=== PATIENT | female | born 1965 | race Caucasian/White ===

== ENCOUNTER 2024-06-29 13:25 | Emergency (ER) | payer OTHER, SELFPAY ==
[2024-06-29] VITALS (27 sets, daily range): BP systolic 117–142; BP diastolic 83–96; PULSE 73–94; RESP 0–29; TEMP 36.3; O2SAT 92–100; BMI 46.7
--- NOTE | 2024-06-29 13:50 | CRLHL7_ITS ---
For Patients: As a result of the Century Cures Act, medical imaging exams and procedure reports are released immediately into your electronic medical record. You may view this report before your referring provider. If you have questions, please contact your health care provider. INDICATION: Shortness of breath COMPARISON: None. TECHNIQUE: Single frontal radiographic view(s) of the chest. FINDINGS: No substantial pleural effusion. No definite focal pulmonary consolidation. Normal heart size. No acute osseous findings. IMPRESSION: No acute thoracic findings. Dictated by Hood Harrison MD @ 06/29/2024 2:31:10 PM (Electronically Signed)
[2024-06-29 14:13] LABS: Basophils Percent Auto 0.3 % (0.0-3.0); Eosinophils Percent Auto 0.5 % (0.0-7.0); Hematocrit 51.4 % (33.0-51.0); Hemoglobin* 16.5 gm/dL (12.0-16.0); Immature Granulocytes Pct Auto 0.4 %; Lymphocytes Percent Auto 10.5 % (20-44); Mean Corpuscular HGB Conc 32 gm/dL (32-36); Mean Corpuscular Hemoglobin 28 pg (26-34); Mean Corpuscular Volume 87 fL (80-100); Monocytes Percent Auto 7.2 % (0.0-11.0); Neutrophils Percent Auto 81.1 % (42.0-72.0); Platelet Count* 388 K/uL (140-440); RDW Coefficient of Variation % 12.8 % (11.5-15.5); Red Blood Count 5.89 m/uL (4.00-5.20); White Blood Count* 14.72 K/uL (4.50-11.00)
--- NOTE | 2024-06-29 14:14 | ED.GENADULT ---
HPI - General Adult General Date Seen: 06/29/24 <Lashae Vaughn MD - Last Filed: 06/30/24 19:59> Chief complaint: Shortness of Breath/Dyspnea <Lashae Vaughn MD - Last Filed: 06/30/24 19:59> Stated complaint: shortness of breath <Lashae Vaughn MD - Last Filed: 06/30/24 19:59> Time Seen by Provider: 06/29/24 13:44 <Lashae Vaughn MD - Last Filed: 06/30/24 19:59> History of Present Illness HPI narrative: Patient is a 58-year-old woman who comes in because of shortness of breath which she says started earlier today. She told the nurse that she has chest tightness but when I asked about other chest symptoms she denied any chest pain or tightness or heaviness. She says that her hands have felt itchy today, she was working out in the garden yesterday. She notes lower extremity swelling but says that is chronic for the past year and is not any worse today. She denies any fever cough, denies any abdominal pain. She has had a little nausea today and says she had an episode of diarrhea which was nonbloody. She continues to feel short of breath here although she looks to be breathing more comfortably than when I 1st saw her. She does not smoke, denies any prior history of asthma or COPD. Denies significant alcohol use, uses marijuana occasionally, she says the last time was about a month ago. Other medical history notable for diabetes, hypertension <Lashae Vaughn MD - Last Filed: 06/30/24 19:59> Related Data Home medications: Home Medications ?Medication ?Instructions ?Recorded ?Confirmed lisinopril .ROUTE 06/29/24 losartan .ROUTE 06/29/24 omeprazole .ROUTE 06/29/24 rivaroxaban .ROUTE 06/29/24 Previous Rx's ?Medication ?Instructions ?Recorded rivaroxaban 15 mg tablet 15 mg PO BID #42 tabs 06/29/24 <Lashae Vaughn MD - Last Filed: 06/30/24 19:59> Allergies/adverse reactions: Allergies Allergy/AdvReac Type Severity Reaction Status Date / Time buspirone (From BuSpar) Allergy Intermediate Verified 06/29/24 15:35 <Lashae Vaughn MD - Last Filed: 06/30/24 19:59> Review of Systems Status of ROS: Reports: 10 or more systems reviewed and unremarkable except as noted in History and below <Lashae Vaughn MD - Last Filed: 06/30/24 19:59> Exam Narrative: Exam Narrative: Vital signs reviewed In general, alert, nontoxic manage woman, looks older than her stated age. Overweight. Head: Normocephalic, atraumatic. Eyes: Sclera clear. Pupils equal and reactive. ENT: Mucous membranes moist. Neck: Supple without adenopathy. Heart: Regular rate and rhythm without murmur. Lungs: Clear. No increased work of breathing, crackles or wheezes. Abdomen: Soft, nontender to palpation. Extremities: Well perfused, pulses intact. Some edema and venous stasis changes noted in bilateral lower extremities. No calf tenderness. No swelling in her hands. Neurologic: Alert, conversant. Speech fluent, face symmetric. Moves all extremities equally. Skin: Warm, dry well perfused. Affect: Anxious. <Lashae Vaughn MD - Last Filed: 06/30/24 19:59> Const: Vital Signs, click to edit/add: Vital Signs - 24 hr 06/29/24 13:43 06/29/24 14:18 06/29/24 14:19 Temperature 97.3 F L Pulse Rate 74 73 Pulse Rate [Pulse Oximeter] 94 Respiratory Rate 28 H 6 L 26 H Blood Pressure 142/89 H Blood Pressure [Ri ght Upper Arm] 139/88 Pulse Oximetry 98 97 97 Oxygen Delivery Me thod Room Air Room Air 06/29/24 14:30 06/29/24 14:32 06/29/24 14:45 Temperature Pulse Rate 77 79 74 Pulse Rate [Pulse Oximeter] Respiratory Rate 29 H 26 H 18 Blood Pressure 135/96 H Blood Pressure [Ri ght Upper Arm] Pulse Oximetry 94 94 100 Oxygen Delivery Me thod Room Air 06/29/24 15:00 06/29/24 15:15 06/29/24 15:30 Temperature Pulse Rate 73 73 76 Pulse Rate [Pulse Oximeter] Respiratory Rate 25 H 28 H 21 Blood Pressure Blood Pressure [Ri ght Upper Arm] Pulse Oximetry 96 95 96 Oxygen Delivery Me thod 06/29/24 15:32 06/29/24 15:58 06/29/24 15:59 Temperature Pulse Rate 74 75 Pulse Rate [Pulse Oximeter] Respiratory Rate 25 H 25 H Blood Pressure 117/83 137/85 Blood Pressure [Ri ght Upper Arm] Pulse Oximetry 93 94 Oxygen Delivery Me thod Room Air 06/29/24 16:00 06/29/24 16:02 06/29/24 16:15 Temperature Pulse Rate 76 76 77 Pulse Rate [Pulse Oximeter] Respiratory Rate 27 H 27 H 25 H Blood Pressure 128/91 H Blood Pressure [Ri ght Upper Arm] Pulse Oximetry 95 98 95 Oxygen Delivery Me thod Room Air 06/29/24 16:30 06/29/24 16:32 06/29/24 16:45 Temperature Pulse Rate 76 76 77 Pulse Rate [Pulse Oximeter] Respiratory Rate 25 H Blood Pressure 141/94 H Blood Pressure [Ri ght Upper Arm] Pulse Oximetry 96 95 92 Oxygen Delivery Me thod Room Air 06/29/24 17:00 06/29/24 17:02 06/29/24 17:03 Temperature Pulse Rate 77 76 Pulse Rate [Pulse Oximeter] Respiratory Rate 0 L Blood Pressure 136/84 Blood Pressure [Ri ght Upper Arm] Pulse Oximetry 98 94 Oxygen Delivery Me thod Room Air 06/29/24 17:15 06/29/24 17:30 06/29/24 17:32 Temperature Pulse Rate 79 76 77 Pulse Rate [Pulse Oximeter] Respiratory Rate 24 16 Blood Pressure 130/93 H Blood Pressure [Ri ght Upper Arm] Pulse Oximetry 96 96 96 Oxygen Delivery Me thod Room Air 06/29/24 17:45 06/29/24 18:00 06/29/24 18:02 Temperature Pulse Rate 81 75 77 Pulse Rate [Pulse Oximeter] Respiratory Rate 22 28 H Blood Pressure 129/95 H Blood Pressure [Ri ght Upper Arm] Pulse Oximetry 94 94 Oxygen Delivery Me thod Room Air <Lashae Vaughn MD - Last Filed: 06/30/24 19:59> Vital Signs, click to edit/add: Vital Signs - 24 hr 06/29/24 13:43 06/29/24 14:18 06/29/24 14:19 Temperature 97.3 F L Pulse Rate 74 73 Pulse Rate [Pulse Oximeter] 94 Respiratory Rate 28 H 6 L 26 H Blood Pressure 142/89 H Blood Pressure [Ri ght Upper Arm] 139/88 Pulse Oximetry 98 97 97 Oxygen Delivery Me thod Room Air Room Air 06/29/24 14:30 06/29/24 14:32 06/29/24 14:45 Temperature Pulse Rate 77 79 74 Pulse Rate [Pulse Oximeter] Respiratory Rate 29 H 26 H 18 Blood Pressure 135/96 H Blood Pressure [Ri ght Upper Arm] Pulse Oximetry 94 94 100 Oxygen Delivery Me thod Room Air 06/29/24 15:00 06/29/24 15:15 06/29/24 15:30 Temperature Pulse Rate 73 73 76 Pulse Rate [Pulse Oximeter] Respiratory Rate 25 H 28 H 21 Blood Pressure Blood Pressure [Ri ght Upper Arm] Pulse Oximetry 96 95 96 Oxygen Delivery Me thod 06/29/24 15:32 06/29/24 15:58 06/29/24 15:59 Temperature Pulse Rate 74 75 Pulse Rate [Pulse Oximeter] Respiratory Rate 25 H 25 H Blood Pressure 117/83 137/85 Blood Pressure [Ri ght Upper Arm] Pulse Oximetry 93 94 Oxygen Delivery Me thod Room Air 06/29/24 16:00 06/29/24 16:02 06/29/24 16:15 Temperature Pulse Rate 76 76 77 Pulse Rate [Pulse Oximeter] Respiratory Rate 27 H 27 H 25 H Blood Pressure 128/91 H Blood Pressure [Ri ght Upper Arm] Pulse Oximetry 95 98 95 Oxygen Delivery Me thod Room Air 06/29/24 16:30 06/29/24 16:32 06/29/24 16:45 Temperature Pulse Rate 76 76 77 Pulse Rate [Pulse Oximeter] Respiratory Rate 25 H Blood Pressure 141/94 H Blood Pressure [Ri ght Upper Arm] Pulse Oximetry 96 95 92 Oxygen Delivery Me thod Room Air 06/29/24 17:00 06/29/24 17:02 06/29/24 17:03 Temperature Pulse Rate 77 76 Pulse Rate [Pulse Oximeter] Respiratory Rate 0 L Blood Pressure 136/84 Blood Pressure [Ri ght Upper Arm] Pulse Oximetry 98 94 Oxygen Delivery Me thod Room Air 06/29/24 17:15 06/29/24 17:30 06/29/24 17:32 Temperature Pulse Rate 79 76 77 Pulse Rate [Pulse Oximeter] Respiratory Rate 24 16 Blood Pressure 130/93 H Blood Pressure [Ri ght Upper Arm] Pulse Oximetry 96 96 96 Oxygen Delivery Me thod Room Air 06/29/24 17:45 06/29/24 18:00 06/29/24 18:02 Temperature Pulse Rate 81 75 77 Pulse Rate [Pulse Oximeter] Respiratory Rate 22 28 H Blood Pressure 129/95 H Blood Pressure [Ri ght Upper Arm] Pulse Oximetry 94 94 Oxygen Delivery Me thod Room Air <Arian Reza MD - Last Filed: 06/29/24 18:47> Course Course ED Course: When I 1st walked into the room she was breathing very heavily but that seemed to settle down as we talked. She was never hypoxic. Lungs are clear. Will maintain her on the monitor, look for cardiac sources such as acute coronary syndrome or angina, arrhythmia, pericardial effusion, she is anticoagulated, need to clarify why as she did not mention anything her medical history that would require anticoagulation. She had an EKG that shows a normal sinus rhythm, ventricular rate of 72. No acute ST segment changes, unremarkable T-waves. Labs including troponin and D-dimer pending. Chest x-ray by my review does not show infiltrate, pneumothorax and cardiac silhouette looks overall normal. Radiology read pending at this time. Given that she has no wheezing or hypoxia, I am hesitant to use a neb at this time as there does not seem to be a clear indication. Labs notable for a mildly increased white blood cell count of 14.7, hemoglobin also increases 16.5 platelets normal. Slight left shift with 81% neutrophils. Metabolic panel normal, LFTs notable for mild elevations in transaminases with an AST of 62 and an ALT of 80, LFTs otherwise unremarkable. CRP minimally elevated at 2.3, BNP is 454, unlikely to suggest CHF particularly in the setting of a normal chest x-ray. Viral swab was negative and initial point of care troponin was 0.01. Radiology read of her chest x-ray was likewise negative. Notably, her D-dimer returned at greater than 20, so she is going to get a chest CT to rule out pulmonary embolism. Patient notes that she has a history of factor 5 Leiden and has had DVT, she does say that she is maintained on Xarelto and takes it regularly. However, she does say that there was a period of time where she was without her medications about a month ago due to some problem with the pharmacy. This may have created a window of time where she developed DVT. I reviewed her CT scan, I do think she has PE. Radiology called with report noting peripheral PE and some pulmonary hypertension but no right heart strain. She has a PESI score of 58 which puts her in the very low risk category. She is not requiring oxygen. I talked with our hospitalist who was able to look a little deeper into her records, it looks as if currently she is prescribed 10 mg of Xarelto daily, at least the last prescription that we can see this looks like which she was prescribed. This would be a very low dose, below even renal dosing, and may explain as well why she is having more difficulty with increased clotting. As such, I think it is reasonable to let her go home, there are no clear indications here for inpatient treatment at this moment, assuming that she is not failing DOAC treatment. My suspicion at this time is that she is just under dosed. I have sent a prescription for Xarelto 15 mg b.i.d. for the next 3 weeks, she should follow up with primary care. I am going to have ultrasound scan her legs just to see if she has significant additional clot or not. If she has heavy clot burden in the legs, she may warrant admission for heparin for 24 hours. Otherwise, outpatient management as above. She is not certain at this time which medication she is taking because of her insurance. It is possible we will need to switch this to Eliquis if her insurance refuses Xarelto. Interestingly, her INR is 0.88, suggesting she may not be taking even her low-dose Xarelto as religiously as she tells me. <Lashae Vaughn MD - Last Filed: 06/30/24 19:59> Reevaluation(s) Reevaluation #1: Patient signed out to Dr. Reza at shift change. Patient presented with chest pain was found to have small pulmonary emboli but stable for outpatient management. It turns out the patient has a history of venous thromboembolism and history of hypercoagulability and probably had been briefly off of her anticoagulants recently. Duplex ultrasound of her legs is ordered to make sure there is not additional clot burden. If there are significant DVTs, Dr. Vaughn would recommend changing plan from discharge and instead going with admission for anticoagulation and monitoring. DVT ultrasound came back negative. DVT ultrasound bilateral lower extremity IMPRESSION: Normal venous ultrasound exam. No evidence of deep vein thrombosis within either the left or right lower extremity. Patient was discharged as per Dr. Boss plan. <Arian Reza MD - Last Filed: 06/29/24 18:47> Vital Signs Vital signs: Initial Vital Signs Temperature 97.3 F L 06/29/24 13:43 Temperature Source Temporal Artery Scan 06/29/24 13:43 Pulse Rate 94 06/29/24 13:43 Respiratory Rate 28 H 06/29/24 13:43 Blood Pressure 139/88 06/29/24 13:43 Blood Pressure Mean 105 06/29/24 13:43 Pulse Oximetry 98 06/29/24 13:43 Oxygen Delivery Method Room Air 06/29/24 13:43 Vital Signs Temperature 97.3 F L 06/29/24 13:43 Pulse Rate 94 06/29/24 13:43 Respiratory Rate 28 H 06/29/24 13:43 Blood Pressure 139/88 06/29/24 13:43 Pulse Oximetry 98 06/29/24 13:43 Oxygen Delivery Method Room Air 06/29/24 13:43 Temperature 97.3 F L 06/29/24 13:43 Pulse Rate 77 06/29/24 18:02 Respiratory Rate 28 H 06/29/24 18:02 Blood Pressure 129/95 H 06/29/24 18:02 Pulse Oximetry 94 06/29/24 18:02 Oxygen Delivery Method Room Air 06/29/24 18:02 <Lashae Vaughn MD - Last Filed: 06/30/24 19:59> Initial Vital Signs Temperature 97.3 F L 06/29/24 13:43 Temperature Source Temporal Artery Scan 06/29/24 13:43 Pulse Rate 94 06/29/24 13:43 Respiratory Rate 28 H 06/29/24 13:43 Blood Pressure 139/88 06/29/24 13:43 Blood Pressure Mean 105 06/29/24 13:43 Pulse Oximetry 98 06/29/24 13:43 Oxygen Delivery Method Room Air 06/29/24 13:43 Vital Signs Temperature 97.3 F L 06/29/24 13:43 Pulse Rate 94 06/29/24 13:43 Respiratory Rate 28 H 06/29/24 13:43 Blood Pressure 139/88 06/29/24 13:43 Pulse Oximetry 98 06/29/24 13:43 Oxygen Delivery Method Room Air 06/29/24 13:43 Temperature 97.3 F L 06/29/24 13:43 Pulse Rate 77 06/29/24 18:02 Respiratory Rate 28 H 06/29/24 18:02 Blood Pressure 129/95 H 06/29/24 18:02 Pulse Oximetry 94 06/29/24 18:02 Oxygen Delivery Method Room Air 06/29/24 18:02 <Arian Reza MD - Last Filed: 06/29/24 18:47> Medical Decision Making Lab Data Labs: Lab Results 06/29/24 06/29/24 Range/Units 13:40 14:05 WBC 14.72 H (4.50-11.00) K/uL RBC 5.89 H (4.00-5.20) m/uL Hgb 16.5 H (12.0-16.0) gm/dL Hct 51.4 H (33.0-51.0) % MCV 87 (80-100) fL MCH 28 (26-34) pg MCHC 32 (32-36) gm/dL RDW Coeff of Mary 12.8 (11.5-15.5) % Plt Count 388 (140-440) K/uL Neut % (Auto) 81.1 H (42.0-72.0) % Lymph % (Auto) 10.5 L (20-44) % [place] % (Auto) 7.2 (0.0-11.0) % Eos % (Auto) 0.5 (0.0-7.0) % Baso % (Auto) 0.3 (0.0-3.0) % Neut # (Auto) 11.90 H (1.7-7.0) K/uL Lymph # (Auto) 1.50 (0.90-2.90) K/uL [place] # (Auto) 1.10 H (0.00-0.90) K/UL Eos # (Auto) 0.10 (0.00-0.50) K/uL Baso # (Auto) 0.00 (0.00-0.30) K/uL Abs Immat Gran (auto) 0.10 (0.00-0.30) K/uL Imm/Tot Granulo (auto) 0.4 % INR 0.88 L (0.91-1.10) D-Dimer Quant (PE/DVT) > 20.00 H (0.00-0.50) ug/ml Sodium 140 (135-149) mmol/L Potassium 4.3 (3.6-5.1) mmol/L Chloride 107 (96-114) mmol/L Carbon Dioxide 25 (20-32) mmol/L Anion Gap 8 (7-15) mEq/L BUN 16 (7-30) mg/dL Creatinine 1.0 (0.5-1.5) mg/dL Estimated Creat Clear 52.95 Estimated GFR 65 ml/min Glucose 126 H (60-115) mg/dL Calcium 9.1 (8.4-10.6) mg/dL Magnesium 2.1 (1.5-2.6) mg/dL Total Bilirubin 0.6 (0.1-1.5) mg/dL Direct Bilirubin 0.3 (0.0-0.5) mg/dL AST 62 H (12-35) U/L ALT 80 H (4-35) U/L Alkaline Phosphatase 143 (40-150) U/L C-Reactive Protein 2.3 H (0.5-1.0) mg/dL NT-Pro-B Natriuret Pep 454 pg/mL Total Protein 7.4 (6.0-8.3) g/dL Albumin 4.4 (3.3-5.0) g/dL SARS-CoV-2 (PCR) Negative SARS-CoV-2 (Negative) Influenza Type A (PCR) Negative PCR FLU A (Negative) Influenza Type B (PCR) Negative PCR FLU B (Negative) RSV (PCR) Negative PCR RSV (Negative) POC Troponin I 0.01 (0.01-0.04) ng/ml <Lashae Vaughn MD - Last Filed: 06/30/24 19:59> Lab Results 06/29/24 06/29/24 Range/Units 13:40 14:05 WBC 14.72 H (4.50-11.00) K/uL RBC 5.89 H (4.00-5.20) m/uL Hgb 16.5 H (12.0-16.0) gm/dL Hct 51.4 H (33.0-51.0) % MCV 87 (80-100) fL MCH 28 (26-34) pg MCHC 32 (32-36) gm/dL RDW Coeff of Mary 12.8 (11.5-15.5) % Plt Count 388 (140-440) K/uL Neut % (Auto) 81.1 H (42.0-72.0) % Lymph % (Auto) 10.5 L (20-44) % [place] % (Auto) 7.2 (0.0-11.0) % Eos % (Auto) 0.5 (0.0-7.0) % Baso % (Auto) 0.3 (0.0-3.0) % Neut # (Auto) 11.90 H (1.7-7.0) K/uL Lymph # (Auto) 1.50 (0.90-2.90) K/uL [place] # (Auto) 1.10 H (0.00-0.90) K/UL Eos # (Auto) 0.10 (0.00-0.50) K/uL Baso # (Auto) 0.00 (0.00-0.30) K/uL Abs Immat Gran (auto) 0.10 (0.00-0.30) K/uL Imm/Tot Granulo (auto) 0.4 % INR 0.88 L (0.91-1.10) D-Dimer Quant (PE/DVT) > 20.00 H (0.00-0.50) ug/ml Sodium 140 (135-149) mmol/L Potassium 4.3 (3.6-5.1) mmol/L Chloride 107 (96-114) mmol/L Carbon Dioxide 25 (20-32) mmol/L Anion Gap 8 (7-15) mEq/L BUN 16 (7-30) mg/dL Creatinine 1.0 (0.5-1.5) mg/dL Estimated Creat Clear 52.95 Estimated GFR 65 ml/min Glucose 126 H (60-115) mg/dL Calcium 9.1 (8.4-10.6) mg/dL Magnesium 2.1 (1.5-2.6) mg/dL Total Bilirubin 0.6 (0.1-1.5) mg/dL Direct Bilirubin 0.3 (0.0-0.5) mg/dL AST 62 H (12-35) U/L ALT 80 H (4-35) U/L Alkaline Phosphatase 143 (40-150) U/L C-Reactive Protein 2.3 H (0.5-1.0) mg/dL NT-Pro-B Natriuret Pep 454 pg/mL Total Protein 7.4 (6.0-8.3) g/dL Albumin 4.4 (3.3-5.0) g/dL SARS-CoV-2 (PCR) Negative SARS-CoV-2 (Negative) Influenza Type A (PCR) Negative PCR FLU A (Negative) Influenza Type B (PCR) Negative PCR FLU B (Negative) RSV (PCR) Negative PCR RSV (Negative) POC Troponin I 0.01 (0.01-0.04) ng/ml <Arian Reza MD - Last Filed: 06/29/24 18:47> Imaging Data CT scan - chest: Attestation: I have reviewed the pertinent imaging results. <Lashae Vaughn MD - Last Filed: 06/30/24 19:59> Radiologist's impression: [place] [address] Diagnostic Imaging Report Patient: Rachele Sue MR#: [id number] : 1965 Acct:[id number] Loc: ED Service Date: 06/29/[address]: Ordering Physician: Lashae Vaughn M.D. Date of Service: 06/29/24 Procedure(s): CT angio chest PE protocol Accession Number(s): [id number] cc: Lashae Vaughn M.D.; Provider,Not a Local~ For Patients: As a result of the Cures Act, medical imaging exams and procedure reports are released immediately into your electronic medical record. You may view this report before your referring provider. If you have questions, please contact your health care provider. INDICATION: Shortness of breath and elevated D-dimer COMPARISON: Same day chest radiograph TECHNIQUE: CT pulmonary angiogram of the chest with intravenous contrast (95 milliliters Isovue 370). Reconstructed images/MIPS were created. FINDINGS: Mildly motion degraded exam. Airways: The trachea and central airways are clear. Lungs: No mass or consolidation. Please note that evaluation for pulmonary nodules is limited due to motion artifact. Slight mosaic attenuation throughout the lungs. Pleura: No effusion. Lymph nodes: No bulky thoracic lymphadenopathy. Heart: Normal size. No CT evidence of right heart strain. Aorta: Normal caliber. Pulmonary artery: There are lobar and more distal pulmonary emboli with an overall moderate clot volume. Enlarged caliber of the main pulmonary artery suggestive of pulmonary hypertension in the context of embolism. Chest wall: Normal. Bones: There are osseous degenerative changes. Probably old fracture of the left anterior 3rd rib. Slight anterior vertebral body wedging most conspicuous in the mid and inferior thoracic spine. Additional findings: Small hiatal hernia. Partially imaged punctate nonobstructing right renal calculus. Partially imaged colonic diverticulosis. IMPRESSION: 1. There are lobar and more distal pulmonary emboli with an overall moderate clot volume. 2. Enlarged caliber of the main pulmonary artery suggestive of pulmonary hypertension in the context of embolism. 3. No CT evidence of right heart strain. 4. Additional chronic and incidental findings as discussed above. 5. Findings discussed via telephone with Dr. Vaughn at 2:16 p.m. [place] standard time June 29, 2024. Please note that all CT scans at this facility use dose modulation, iterative reconstruction, and/or weight-based dosing when appropriate to reduce radiation dose to as low as reasonably achievable. Dictated by Hood Harrison MD @ 06/29/2024 4:22:50 PM <Lashae Vaughn MD - Last Filed: 06/30/24 19:59> Discharge Plan Discharge Clinical Impression: Pulmonary embolism <Lashae Vaughn MD - Last Filed: 06/30/24 19:59> Patient Disposition: Home, Self-Care <Lashae Vaughn MD - Last Filed: 06/30/24 19:59> Condition: Stable <Lashae Vaughn MD - Last Filed: 06/30/24 19:59> Instructions: Pulmonary Embolism (ED) <Lashae Vaughn MD - Last Filed: 06/30/24 19:59> Additional Instructions: We are going to change the dosing of your anticoagulation. I am not sure at this point if you are on Xarelto or Eliquis, and I do not know for sure which medication your insurance prefers. I am going to prescribe Xarelto, and if needed this can be switched to Eliquis. You should take the higher dose of Xarelto for 3 weeks. Please follow-up with your primary care doctor in the next 1-2 weeks to discuss further anticoagulation. If you are feeling worse, have more significant shortness of breath, fainting, severe pain, fevers etcetera, return to the ER at any time. <Lashae Vaughn MD - Last Filed: 06/30/24 19:59> Prescriptions: New rivaroxaban 15 mg tablet 15 mg PO BID Qty: 42 0RF Rx Instructions: must administer with evening meal No Action lisinopril .ROUTE losartan .ROUTE omeprazole .ROUTE rivaroxaban [Xarelto] .ROUTE <Lashae Vaughn MD - Last Filed: 06/30/24 19:59> Follow Up/Referrals: Provider,Not a Local [Primary Care Provider] - <Lashae Vaughn MD - Last Filed: 06/30/24 19:59> Stand Alone Forms: MyHealth Info Instructions <Lashae Vaughn MD - Last Filed: 06/30/24 19:59>
[2024-06-29 14:19] LABS: Slide Review Reflex No; Troponin, Point-of-Care* 0.01 ng/ml (0.01-0.04)
[2024-06-29 14:27] LABS: Albumin* 4.4 g/dL (3.3-5.0); Chloride* 107 mmol/L (96-114); Sodium* 140 mmol/L (135-149)
[2024-06-29 14:28] LABS: Potassium* 4.3 mmol/L (3.6-5.1)
[2024-06-29 14:30] LABS: Alanine Aminotransferase* 80 U/L (4-35); Alkaline Phosphatase* 143 U/L (40-150); Anion Gap 8 mEq/L (7-15); Aspartate Amino Transferase* 62 U/L (12-35); Bilirubin Direct* 0.3 mg/dL (0.0-0.5); Bilirubin Total* 0.6 mg/dL (0.1-1.5); Blood Urea Nitrogen* 16 mg/dL (7-30); Calcium* 9.1 mg/dL (8.4-10.6); Carbon Dioxide* 25 mmol/L (20-32); Est. Creatinine Clearance* 52.95; Estimated Glomerular Filt Rate 65 ml/min; Glucose* 126 mg/dL (60-115); Total Protein* 7.4 g/dL (6.0-8.3)
[2024-06-29 14:31] LABS: Magnesium* 2.1 mg/dL (1.5-2.6)
[2024-06-29 14:33] LABS: C Reactive Protein* 2.3 mg/dL (0.5-1.0)
[2024-06-29 14:35] LABS: PCR FLU A Negative PCR FLU A (Negative); PCR FLU B Negative PCR FLU B (Negative); PCR RSV Negative PCR RSV (Negative); SARS PCR* Negative SARS-CoV-2 (Negative)
[2024-06-29 14:41] LABS: NT Pro B Type NatriureticPept* 454 pg/mL
[2024-06-29 15:18] LABS: D Dimer Quantitative* > 20.00 ug/ml (0.00-0.50)
--- NOTE | 2024-06-29 15:25 | CRLHL7_ITS ---
For Patients: As a result of the Century Cures Act, medical imaging exams and procedure reports are released immediately into your electronic medical record. You may view this report before your referring provider. If you have questions, please contact your health care provider. INDICATION: Shortness of breath and elevated D-dimer COMPARISON: Same day chest radiograph TECHNIQUE: CT pulmonary angiogram of the chest with intravenous contrast (95 milliliters Isovue 370). Reconstructed images/MIPS were created. FINDINGS: Mildly motion degraded exam. Airways: The trachea and central airways are clear. Lungs: No mass or consolidation. Please note that evaluation for pulmonary nodules is limited due to motion artifact. Slight mosaic attenuation throughout the lungs. Pleura: No effusion. Lymph nodes: No bulky thoracic lymphadenopathy. Heart: Normal size. No CT evidence of right heart strain. Aorta: Normal caliber. Pulmonary artery: There are lobar and more distal pulmonary emboli with an overall moderate clot volume. Enlarged caliber of the main pulmonary artery suggestive of pulmonary hypertension in the context of embolism. Chest wall: Normal. Bones: There are osseous degenerative changes. Probably old fracture of the left anterior 3rd rib. Slight anterior vertebral body wedging most conspicuous in the mid and inferior thoracic spine. Additional findings: Small hiatal hernia. Partially imaged punctate nonobstructing right renal calculus. Partially imaged colonic diverticulosis. IMPRESSION: 1. There are lobar and more distal pulmonary emboli with an overall moderate clot volume. 2. Enlarged caliber of the main pulmonary artery suggestive of pulmonary hypertension in the context of embolism. 3. No CT evidence of right heart strain. 4. Additional chronic and incidental findings as discussed above. 5. Findings discussed via telephone with Dr. Vaughn at 2:16 p.m. [place] standard time June 29, 2024. Please note that all CT scans at this facility use dose modulation, iterative reconstruction, and/or weight-based dosing when appropriate to reduce radiation dose to as low as reasonably achievable. Dictated by Hood Harrison MD @ 06/29/2024 4:22:50 PM (Electronically Signed)
--- NOTE | 2024-06-29 16:21 | CRLHL7_ITS ---
For Patients: As a result of the Century Cures Act, medical imaging exams and procedure reports are released immediately into your electronic medical record. You may view this report before your referring provider. If you have questions, please contact your health care provider. INDICATION: Known history of pulmonary embolism. TECHNIQUE: A compression venous ultrasound exam was performed of both lower extremities using murray scale imaging, color Doppler and spectral Doppler analysis. FINDINGS: Sonographic imaging of the lower extremities demonstrates normal compressibility and color Doppler venous blood flow within the common femoral, deep femoral, and proximal greater saphenous veins. Within the thighs the femoral veins are patent and compressible. At a lower level the popliteal and posterior tibial veins also show normal compressibility and color Doppler venous blood flow. IMPRESSION: Normal venous ultrasound exam. No evidence of deep vein thrombosis within either the left or right lower extremity. Dictated by Sylvain Mayorga MD @ 06/29/2024 6:45:26 PM (Electronically Signed)
[2024-06-29 16:52] LABS: INR 0.88 (0.91-1.10); Prothrombin Time 12.7 Seconds
--- OUTSIDE RECORDS SUMMARY | 2024-06-29 17:48 | XMS_ITS | Encounter Summary ---
Author Organization [facility] Address [address] [place] [address] Care Team Providers Care Processor Grain Name Role Phone [facility] Primary Ca re Provider No Ref-Primary, Physician Primary Care Provider Keyla Ayala MD Unavailable [phone] Patrizia Palm MD Unavailable [phone] Patrizia Palm MD Unavailable [phone] Paula Alex MD Unavailable [phone] [facility] Unavailable Encounter Details Date Type Department Care Team (Late st Contact Info) Description 12/05/2018 Records - [facility] HE CONVERSION Scan, Non-Provider Social History Tobacco Use Types Packs/Day Years Used Date Smoking Tobacco: Never Smokeless Tobacco: Never Alcohol Use Standard Drinks/Week Comments Yes 0 (1 standard drink = 0.6 oz pur e alcohol) weekends Comments No Sex and Gender Information Value Date Recorded Sex Assigned at Not on file Legal Sex Female 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 Gender Identity Not on file Sexual Orientation Not on file documented as of this encounter Plan of Treatment Not on file documented as of this encounter Visit Diagnoses Not on filedocumented in this encounter Care Teams Processor Grain Relationship Specialty Start Date End Date [facility] [address] [place] [address] PCP - General 09/21/17 12/26/18 No Ref-Primary, Physician PCP - General 12/27/18 Keyla Ayala MD PLASTIC SURGERY [address] [place] [address] Surgeon Plastic Surgery 12/27/18 Patrizia Palm MD [address] [place] [id number] Plastic Surgery 12/27/18 Patrizia Palm MD [address] [place] [address] [id number] Assigned Surgical Provider 12/05/19 Paula Alex MD [address] [place] [address] [id number] Assigned PCP 07/28/20 03/07/23 [facility] [address] [place], [place] [id number] Assigned PCP 03/08/23 02/03/24 documented as of this encounter
--- OUTSIDE RECORDS SUMMARY | 2024-06-29 17:48 | XMS_ITS | Patient Health Record ---
Author Organization [facility] Address [address] [place] [address] Care Team Providers Care Sql Architect Name Role Phone Roxy Alcantara Primary Care Provider [phone] Allergies Allergen (clinical drug ingredient) Drug/Non Drug Allergy documented on EMR Reaction Allergy Type Onset Date Status metronidazole Flagyl Unknown Drug Allergy Act saida sertraline Zoloft Unknown Drug Allergy Active Reason For Referral No Information Medications Medication SIG (Take, Route, Frequency, Duration) Notes Start Date End Date Status Vitamin E Active metFORMIN HCl Active Eliquis Active Topiramate Active Wellbutrin Active Social History Tobacco Use: Social History Observation Description Date Details (start date - stop date) Never Smoker NA - NA Tobacco Use/Smoking Question Answer Notes Are you a nonsmoker Plan Of Treatment No Information Insurance Providers Payer Name Payer Address Payer Phone Subscriber Number Group Number Insured Name Patient Relationship to Insured Coverage Start Date Coverage End Date Medicare (Ins. Bill) [address] [place], [place] [id number] Linette Rachele Self - patient is the insured [facility] Medicaid (Ins. Bill) [address] [address] [place], [place] [id number] Linette Rachele Self - patient is the insured Medical (General) History Medical History History ICD Code Depression\Anxiety Factor V Diabetes HTN High cholestrol Migraines Surgical History Surgery Date(Month/Year) TVT 2008 Foot surgery 1988 Knee surgery 2010 Tubal ligation
--- OUTSIDE RECORDS SUMMARY | 2024-06-29 17:48 | XMS_ITS | Patient Health Record ---
Author Organization [facility] Address [address] [place] [address] Support Name Relationship Address Phone InocenteSherry mancinicarina Harvey Guarantor Unknown [phone] Allergies Allergen (clinical drug ingredient) Drug/Non Drug Allergy documented on EMR Reaction Allergy Type Onset Date Status aripiprazole Abilify (uncoded) Unknown Allergy Active BuSpar (uncoded) Unknown Allergy Act saida metronidazole Flagyl (uncoded) Unknown Allergy Active escitalopram Lexapro (uncoded) Unknown Allergy Active Reason For Referral No Information Medications Medication SIG (Take, Route, Fr equency, Duration) Notes Start Date End Date Status Warfarin Sodium Acti ve Probiotic Active Pepcid Active Wellbutrin XL Active Topiramate Active Gemfibrozil Active Fish Oil Active Imitrex Active Social History Tobacco Use: Social History Observation Description Date Details (start date - stop date) Never Smoker NA - NA Tobacco Use/Smoking Question Answer Notes Are you a nonsmoker Alcohol Screen (Audit-C) Question Answer Notes Did you have a drink contain ing alcohol in the past year? Yes How often did you have a dri nk containing alcohol in the past year? 2 to 4 times a month (2 points) How many drinks did you have on a typical day when you were drinking in the past year? 5 or 6 drinks (2 points) Points 4 Problems Problem Type SNOMED Code ICD Code Onset Dates Problem Status W/U Status Risk Notes Problem Atrophy of vagina (297783618) Vaginal atrophy (N95.2) Active confirmed Plan Of Treatment No Information Insurance Providers Payer Name Payer Address Payer Phone Subscriber Number Group Number Insured Name Patient Relationship to Insured Coverage Start Date Coverage End Date Preferred One PPO [address] [address] [place] [id number] Rachele Sue Self - patient is the insured Medical (General) History Medical History History ICD Code High cholesterol. Blood Clots Hep B Bladder Infections Chicken Pox Migraines Depression/Anxiety Surgical History Surgery Date(Month/Year) Essure 2004 Appendix removal 1969 ACL, MCL, Medial Menuscus repair 2010
--- OUTSIDE RECORDS SUMMARY | 2024-06-29 17:48 | XMS_ITS | Clinical Summary ---
Author Organization [facility] Address [address] [place] [address] Care Team Providers Care Vice President Of Brand Management Name Role Phone Mic Rothman DO Primary Care Provider Allergies Active Allergy Reactions Criticality Noted Date Comments Aripiprazole Other - Describe In Comment Field 07/10/2014 Memory Change Buspirone Other - Describe In Comment Field 07/09/2013 Patient get aggitated Escitalopram Itching 07/09/2013 Metronidazole Nausea And Vomiting 07/09/2013 Medications acetaminophen (TYLENOL) 325 mg tablet 10/17/19 18 Active Lactobacillus acidophilus 1.5 mg (250 million cell) cap Take 1 Cap by mouth. Active omega-3 acid ethyl esters (LOVAZA;OMACOR) 1 gram capsule Take 1,000 mg by mouth. Active saliva substitute (Biotene Dry Mouth Oral Rinse) mouthwash Apply 10 mL to the lining of the mouth. 06/19/19 21 Active Compression Socks, Large miscIndications:Ve nous insufficiency (chronic) (peripheral) As directed. Dispense 2 pairs of compression socks. 4 Each 10/13/19 23 Active Xarelto 10 mg tabletIndications: Heterozygous factor V Leiden mutation (HC),History of DVT (deep vein thrombosis) Take 1 Tablet (10 mg) by mouth once daily with evening meal. 30 Tablet 5 01/18/20 24 Active topiramate (TOPAMAX) 50 mg tabletIndications: Migraine syndrome Take 1 Tablet (50 mg) by mouth once daily. 90 Tablet 3 01/18/20 24 Active SUMAtriptan (IMITREX) 50 mg tabletIndications: Migraine syndrome Take 1 Tablet (50 mg) by mouth 2 times daily if needed for Migraine. 12 Tablet 5 01/18/20 24 Active omeprazole (PRILOSEC) 20 mg Delayed-Release capsuleIndications :Chronic GERD Take 1 Capsule (20 mg) by mouth once daily before a meal. 90 Capsule 3 01/18/20 24 Active metFORMIN (GLUCOPHAGE) 500 mg tabletIndications: Type 2 diabetes mellitus without complication, without long-term current use of insulin (HC) Take 1 Tablet (500 mg) by mouth two times daily with meals. 180 Tablet 3 01/18/20 24 Active losartan (COZAAR) 25 mg tabletIndications: Primary hypertension Take 1 Tablet (25 mg) by mouth once daily. 90 Tablet 3 01/18/20 24 Active furosemide (LASIX) 20 mg tabletIndications: Peripheral edema Take 1 Tablet (20 mg) by mouth once daily if needed (swelling). 90 Tablet 3 01/18/20 24 Active famotidine (PEPCID) 20 mg tabletIndications: Chronic GERD Take 1 Tablet (20 mg) by mouth two times daily. 180 Tablet 3 01/18/20 24 Active cholecalciferol (Vitamin D-3) 2,000 unit capsuleIndications :Vitamin D deficiency Take 1 Capsule (2,000 units) by mouth once daily. 90 Capsule 3 01/18/20 24 Active atorvastatin (LIPITOR) 20 mg tabletIndications: Mixed hyperlipidemia Take 1 Tablet (20 mg) by mouth at bedtime. 90 Tablet 3 01/18/20 24 Active Mounjaro 12.5 mg/0.5 mL penIndications:Typ e 2 diabetes mellitus without complication, without long-term current use of insulin (HC) Inject 12.5 mg subcutaneous once weekly. 12 Pen 1 01/18/20 24 Active tretinoin (RETIN-A) 0.1 % creamIndications:C ystic acne Apply 1 g topically to affected area(s) at bedtime. 45 g 3 01/18/20 24 Active Active Problems Problem Noted Date Diagnosed Date Type 2 diabetes mellitus wit hout complication, without long-term current use of insulin 10/12/2022 Primary hypertension 10/12/2022 Bilateral swelling of feet 07/06/2022 Dermatophytosis of nail 09/20/2020 07/07/19 Generalized anxiety disorder 09/20/2020 care home current use of anticoagulant therapy 0 09/20/2020 07/06/2022 Migraine aura without headache 09/20/2020 0 07/06/2022 Pityriasis versicolor 09/20/2020 07/06/2022 Primary insomnia 09/20/2020 07/06/2022 Reflux esophagitis 09/20/2020 07/06/2022 Stress at home 09/20/2020 07/06/2022 Morbid obesity 06/18/2020 07/06/2022 Major depressive disorder, recurrent episode 11/2019 Overview (09/22/2019): Created by Conversion Replacement Utility updated for latest IMO load Hyperlipidemia 09/22/2019 Overview (09/22/2019): Created by Conversion Vitamin B12 deficiency (non anemic) 01/30/2019 Other acne 10/16/2017 Esophageal reflux 10/16/2017 Chronic pain 10/16/2017 Schizoaffective disorder, bipolar type 8 Delusions 09/21/2017 History of DVT (deep vein thrombosis) 07/06/2017 Factor 5 Leiden mutation, heterozygous 8 Varicose veins 07/29/2014 Resolved Problems Problem Noted Date Diagnosed Date Resolved Date Cocaine substance abuse 09/20/2020 07/06/2022 08/3 02/2022 Methamphetamine use disorder, severe 09/28/2017 10/12/2022 Immunizations Immunization Administration Dates Next Due COVID-19 vaccine (Moderna 100mcg/0.5mL) PF, MDV 10/22/2020,09/20/2020 Influenza RIV4 (Age 18+ Year s) PRESERV FREE 12/30/2020,01/02/2019,11/16/2017 Influenza Virus, Unspecified 11/13/2016, 11/22/2011,10/27/2010,2009,11/05/2008,12/09/2007 Influenza, IIV3 (Age 6-35 mos) 11/16/2015,2008,12/09/2007 Influenza, IIV3 (Age >=3 years) 11/03/19 15,10/11/2012,11/22/2011,2010,11/11/2009 Influenza, IIV4 11/13/2016 Influenza, IIV4 (=>6mos) MDV 10/13/2014,11/18/19 14 Td (Age >=7 Years) 06/01/1997 Td, Preservative Free (age > = 7 Years) 11/16/2017,06/01/1997 Tdap 02/23/2017,09/26/2006 Family History Medical History Relation Name Comments Cancer-breast Maternal Aunt Purnima Joseph's moth er Cancer-breast Other Opal Felton's daughte r Leukemia Son Pradeep Cancer-colon No Family History Cancer-ovarian No Family History Cancer-prostate No Family History Relation Name Status Comments Maternal Aunt Purnima Alive Other Opal Alive maternal 1st co usin Son Pradeep Alive Social History Tobacco Use Types Packs/Day Years Used Date Smoking Tobacco: Former Smokeless Tobacco: Never Alcohol Use Standard Drinks/Week Comments Yes 0 (1 standard drink = 0.6 oz pur e alcohol) PHQ-2 Answer Date Recorded PHQ-2 TOTAL SCORE 1 07/06/2022 Social Connections Answer Date Recorded Frequency of Communication with Friends and Fami ly Not on file 10/13/2023 Financial Resource Strain Answer Date R ecorded Difficulty of Paying Living Expenses 3 10/12/2022 Difficulty of Paying Living Expenses Not on file 10/12/2022 Food Insecurity Answer Date Recorded Worried About Running Out of Food in the Last Ye ar 1 10/12/2022 Transportation Needs Answer Date Record ed Lack of Transportation (Medical) 1 10/12/2022 Housing Stability Answer Date Recorded Unable to Pay for Housing in the Last Year 1 10/12/2022 Comments No Sex and Gender Information Value Date Recorded Sex Assigned at Not on file Legal Sex Female 7:35 PM CDT Gender Identity Not on file Sexual Orientation Not on file Obstetrics History Last Filed Vital Signs Vital Sign Reading Time Taken Comments Blood Pressure 150/96 10/17/2023 11:26 AM CDT Pulse 87 10/17/2023 11:24 AM CDT Temperature 36.4 C (97.5 F) 09/01/2021 9:10 PM CDT Respiratory Rate 18 09/01/2021 9:10 PM CDT Oxygen Saturation 98% 10/17/2023 11:24 AM CDT Inhaled Oxygen Concentration - - Weight 118.2 kg (260 lb 8 oz) 10/17/2023 11:24 A M CDT Height 160.7 cm (5' 3.27) 10/17/2023 11:24 AM C DT Body Mass Index 45.76 10/17/2023 11:24 AM CDT Plan of Treatment Health Maintenance Due Date Last Done Comments Depression screening for age 12+ 1977 Hepatitis B series for Diabetes (1 of 3 - 19+ 3-dose series) 1984 Pneumococcal series for age 50+ (1 of 2 - PCV) 1984 Pap test for age 21-65 1986 Zoster (shingles) series for age 50+ (1 of 2) 11/01/2015 COVID-19 vaccine series ( season) 2023 10/22/2020, 09/20/2020 Mammogram for age 45-75 10/15/2023 10/14/2022 Influenza Vaccine (Season Ended) 2024 12/30/2020, 01/02/2019, 11/16/2017, Additional history exists BMI (ht and wt on same day) for age 18+ 10/16/2024 10/17/2023, 07/06/2022, 09/22/2019, Additional history exists Colonoscopy through age 75 02/12/202502/12 (Completed [facility] of [facility]) Tetanus booster 11/17/2027 11/16/2017, 02/12, 09/26/2006, Additional history exists Lipids for age 45-75 10/16/2028 10/17/2023, 10/13/19 23 Tdap Completed 02/23/2017, 09/26/2006 HIV for age 15-65 Completed 08/18/2019 Hepatitis C screening for age 18-79 Addressed 09/28/2021 (Verified in Care Everywhere or Patient Record) Overridden with the intention of not completing the topic Procedures Procedure Name Priority Date/Time Associated Diagnosis Comments LIPID PANEL W REFLEX MEASURED LDL Routine 10/17/2023 11:12 AM CDT Hyperlipidemia, unspecified hyperlipidemia type XR MAMMO SHIRA BILAT SCREEN Routine 10/14/2022 3:23 PM CDT Visit for screening mammogram ANTI HIV 1/2 Routine 08/18/2019 9:25 PM CDT Possible exposure to STD from Last 3 Months or Most Recently Relevant to Health Maintenance Results * (ABNORMAL) LIPID PANEL W REFLEX MEASURED LDL (10/17/2023 11:12 AM CDT) CHOLESTEROL,TOTAL 161 100 - 199 mg/dL 10/17/2023 6:32 PM CDT [facility] Comment: Cholesterol, Total Reference Ranges Desirable <200 mg/dL Borderline 200-239 mg/dL High >=240 mg/dL TRIGLYCERIDES 161(H) <150 mg/dL 10/17/2023 6:32 PM CDT [facility] HDL CHOLESTEROL 58 >40 mg/dL 6:32 PM CDT [facility] NON-HDL CHOLESTEROL 103 <145 mg/dl 10/17/2023 6:32 PM CDT [facility] CHOL/HDL RATIO 2.78 <4.50 10/17/2023 6:32 PM CDT [facility] LDL CHOLESTEROL 71 <=130 mg/dL 10/17/2023 6:32 PM CDT [facility] VLDL CHOLESTEROL 32(H) <=30 mg/dL 10/17/2023 6:32 PM CDT [facility] PROVIDER ORDERED STATUS RANDOM 10/17/2023 6:32 PM CDT [facility] Blood BLOOD SPECIMEN / Unknown Venipuncture / Unknown 10/17/2023 11:12 AM CDT 10/17/2023 11:14 AM CDT us Mic Rothman DO CHEMISTRY Final Result [facility] [address] [place] [address], [place] * XR MAMMO SHIRA BILAT SCREEN (10/14/2022 3:23 PM CDT) Anatomical Region Laterality Modality BREASTS, Breast Left, Breast Right Bilateral Mammography Impressions 10/18/2022 11:47 AM CDT There is no radiographic evidence for malignancy. Recommend annual mammograms. MAMMOGRAM ASSESSMENT: ACR 1 Negative PATIENTS: You will also receive a letter with your examination results in an easy to read format. If you have questions about your results, please contact your referring provider. Narrative 10/18/2022 11:47 AM CDT For Patients: As a result of the Century Cures Act, medical imaging exams and procedure reports are released immediately into your electronic medical record. You may view this report before your referring provider. If you have questions, please contact your health care provider. XR MAMMO SHIRA BILAT SCREEN [[id number]] CLINICAL HISTORY: This is an asymptomatic 56 y.o. patient. INDICATION FOR EXAM: Mammogram Screening. TECHNIQUE: CC & MLO views were obtained. This study was evaluated with the assistance of Computer-Aided Detection. Breast Tomosynthesis was used in interpretation. COMPARISON FILM: Yes 08/06/19 Outside Facility 09/05/18 Outside Facility FINDINGS: The breasts are almost entirely fatty. There are no dominant masses, suspicious micro calcifications or areas of architectural distortion. us Angelica De Luna MD MAMMO Final Result * ANTI HIV 1/2 (08/18/2019 9:25 PM CDT) HIV-1/HIV-2 ANTIBODY Non-Reacti ve Non-Reacti ve 08/19/2019 3:21 PM CDT [facility] Comment:HIV-1 p24 and HIV-1/ HIV-2 Ab not detected. Blood BLOOD SPECIMEN / Unknown Non-Lab Venipuncture / Unknown 08/18/2019 9:25 PM CDT 08/18/2019 9:34 PM CDT us Lashae Otto MD SEND OUTS Final R esult [facility] [address] [place] [address], [place] from Last 3 Months or Most Recently Relevant to Health Maintenance Insurance MEDICARE PART B HB ONLY [employer] G[employer] CHOICE MR Care Teams Vice President Of Brand Management Relationship Specialty Start Date End Date Mic Rothman DO [address] [place] [address] PCP - General Family Practice 10/19/22
--- OUTSIDE RECORDS SUMMARY | 2024-06-29 17:48 | XMS_ITS | Encounter Summary ---
Author Organization [facility] Address [address] [place] [address] Care Team Providers Care Technical Clerk Name Role Phone No Ref-Primary, Physician Primary Care Provider Keyla Ayala MD Unavailable [phone] Patrizia Palm MD Unavailable [phone] Patrizia Palm MD Unavailable [phone] Paula Alex MD Unavailable [phone] Clinic - [facility] Unavailable Encounter Details Date Type Department Care Team (Late st Contact Info) Description 06/18/2020 Records - [facility] HE CONVERSION Scan, Non-Provider Social History Tobacco Use Types Packs/Day Years Used Date Smoking Tobacco: Never Cigarettes Smokeless Tobacco: Never Alcohol Use Standard Drinks/Week Comments Yes 0 (1 standard drink = 0.6 oz pur e alcohol) weekends PHQ-2 Answer Date Recorded PHQ-2 Score 0 08/01/2019 Comments No Sex and Gender Information Value Date Recorded Sex Assigned at Not on file Legal Sex Female 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 Gender Identity Not on file Sexual Orientation Not on file documented as of this encounter Plan of Treatment Not on file documented as of this encounter Visit Diagnoses Not on filedocumented in this encounter Additional Health Concerns Assessment Noted Time PHQ-9 Depression Total Score: 4 07/08/19 21 10:50 PM CDT documented as of this encounter Care Teams Technical Clerk Relationship Specialty Start Date End Date No Ref-Primary, Physician PCP - General 12/27/18 Keyla Ayala MD [facility] [address] [place], [place] [address] Surgeon Plastic Surgery 12/27/18 Patrizia Palm MD [address] [facility] [address] [id number] Plastic Surgery 12/27/18 Patrizia Palm MD [address] [place] [address] [address] Assigned Surgical Provider 12/05/19 Paula Alex MD [address] [place] [address] [address] Assigned PCP 07/28/20 03/07/23 [facility] [place], [place] [id number] Assigned PCP 03/08/23 02/03/24 documented as of this encounter
--- OUTSIDE RECORDS SUMMARY | 2024-06-29 17:48 | XMS_ITS | Encounter Summary ---
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 Gender Identity Not on file Sexual Orientation Not on file documented as of this encounter Plan of Treatment Not on file documented as of this encounter Visit Diagnoses Not on filedocumented in this encounter Additional Health Concerns Assessment Noted Time PHQ-9 Depression Total Score: 4 07/08/19 21 10:50 PM CDT documented as of this encounter Care Teams Rug Sizer Relationship Specialty Start Date End Date No Ref-Primary, Physician PCP - General 12/27/18 Keyla Ayala MD PLASTIC SURGERY [address] [place] [address] Surgeon Plastic Surgery 12/27/18 Patrizia Palm MD 420 [facility] [address] [place], [place] [address] Plastic Surgery 12/27/18 Paula Alex MD [address] [id number] Assigned PCP 07/28/20 03/07/23 [facility] Gypsy [address] [place], [place] [id number] Assigned PCP 03/08/23 02/03/24 documented as of this encounter
--- OUTSIDE RECORDS SUMMARY | 2024-06-29 17:48 | XMS_ITS | Encounter Summary ---
Author Organization [place] Address [address] [place] [address] Care Team Providers Care Manager Market Intelligence Name Role Phone [facility] Primary Ca re Provider No Ref-Primary, Physician Primary Care Provider Keyla Ayala MD Unavailable [phone] Patrizia Palm MD Unavailable [phone] Patrizia Palm MD Unavailable [phone] Ashlie Talbert MD Primary Care Provider Paula Alex MD Primary Care Provider [phone] Paula Alex MD Unavailable [phone] [facility] Unavailable Encounter Details Date Type Department Care Team (Late st Contact Info) Description 11/04/2014 Records - [facility] HE CONVERSION Scan, Non-Provider Social History Tobacco Use Types Packs/Day Years Used Date Smoking Tobacco: Never Assessed Comments Unknown Sex and Gender Information Value Date Recorded Sex Assigned at Not on file Legal Sex Female 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 Gender Identity Not on file Sexual Orientation Not on file documented as of this encounter Plan of Treatment Not on file documented as of this encounter Visit Diagnoses Not on filedocumented in this encounter Care Teams Manager Market Intelligence Relationship Specialty Start Date End Date [facility] [address] [place] [address] PCP - General 09/21/17 12/26/18 No Ref-Primary, Physician PCP - General 12/27/18 Ashlie Talbert MD [address] [place] [address] PCP - General 10/05/13 07/10/17 Paula Alex MD [address] [address] PCP - General Family Practice 07/11/17 09/20/17 Keyla Ayala MD PLASTIC SURGERY [address] [address] Surgeon Plastic Surgery 12/27/18 Patrizia Palm MD [address] [place] [address] MD Plastic Surgery 12/27/18 Patrizia Palm MD [address] [address] Assigned Surgical Provider 12/05/19 Paula Alex MD [address] [address] Assigned PCP 07/28/20 03/07/23 [facility] Patrizia Betanc[facility] [address] [facility] [address] [facility] [address] [place] [address] Assigned PCP 03/08/23 02/03/24 documented as of this encounter
--- OUTSIDE RECORDS SUMMARY | 2024-06-29 17:48 | XMS_ITS | Data Portability ---
Author Organization [facility] [employer] [id number] Address [address] [facility] [address] [place] [address] Care Team Providers Care Flaring Machine Operator Name Role Phone ROMY OLIVA Primary Care Provider Assessment No assessment recorded. Plan of Treatment Reminders Order Date Submit Date Provider Last Modified By Organization Details Last Modified Time Details Appointments None recorded. Lab unlisted lab - HPV high risk DNA with 16/18 genotyping 2019 [facility], [address] [place], [address], 0 14:45:19 pap, LB 2019 [facility], [address] [place] [address] [place], [address], 0 14:45:20 Referral None recorded. Procedures None recorded. Surgeries None recorded. Imaging US, transvagina l 2019 [facility] 14 [id number] [facility], [address] [facility], [address], [place], [address], 0 17:35:59 US, pelvis 2019 [place] 14 [id number] [facility], [address] [facility], [address], [place], [address], 0 17:35:59 US, pelvis, transabdomi nal + transvagina l 2019 020 [email or web address] 1 [id number] [facility] o[facility], [address] [facility], [address], [place], [address], 0 15:15:47 Medication Orders None recorded. Patient TargetsNo targets recorded. Patient Instructions Encounter Date Encounter Id Patient Instructions Last Modified By Organization Details Last Modified Time 11/18/2019 [id number] re-eval after sono. likely vb following IC. evaluate both ovaries and ES. will call with results. [email or web address] Not available 11/18/2019 11:30:02 Reason for Referral None Reported. Results Created Date Observation Date Name Description Value Unit Range Abnormal Flag Note LastModifiedBy Organization Detail LastModifiedTime 11/19/19 20 11/19/2019 HPV DNA, high- risk HPV high risk type 16 Negati ve for HPV type 16. negati ve for HPV type 16. Not Available [facility] [address] [place], [address], 11/26/2019 14:45:19 11/19/19 20 11/19/2019 HPV DNA, high- risk HPV high risk type 18 Negati ve for HPV type 18. negati ve for HPV type 18. Not Available [facility] [address] [place], [address], 11/26/2019 14:45:19 11/19/19 20 11/19/2019 HPV DNA, high- risk HPV other high risk types Negati ve for other high risk HPV types. negati ve for other high risk HPV types. HPV other high risk types inclu de 31, 33, 35, 39, 45, 51, 52, 56, 58, 59, 66, and 68. Not Available [facility] [address] [place], [address], 11/26/2019 14:45:19 10/07/11/19/2019 pap, LB case report See note CASE REPOR T ----- ----- ----- ----- ----- ----- ----- ----- Pap Smear Case: [id number] Eun[address]elv ybarra Provi toby: Harris Le DO Colle cted: 11/18 04:48 PM Order ing [facility]: 11/19 08:43 AM [facility] Labor atory First Scree n: Sukh Valencia Speci men: Cervi iwona Thin Prep with HPV Test Image r Jairo aguilera, Cervi x ===== ===== ===== ==== = INTER PRETA TION: = ===== ===== ===== ==== Negat saida for intra epith elial lesio n or marialuisa bingham cells . Elect alma abarca by Sukh Valencia on 11/25 at 1:45 PM SPECI MEN ADEQU ACY ----- ----- ----- ----- ----- ----- ----- ----- Satis facto ry for evalu ation . Endoc syed al/romeo ansfo rmati on zone compo nent absen t. CLINI IWONA INFOR MATIO N ----- ----- ----- ----- ----- ----- ----- ----- Postm enopa usal LMP ----- ----- ----- ----- ----- ----- ----- ----- NONE PAP DISCL AIMER ----- ----- ----- ----- ----- ----- ----- ----- This speci men was scree maura by the Thin rep Henry gustafson prior to manua l revie w by a cytot echno logis t and/o r patho logis t. The Pap test is a scree willy test and has an irred ucibl e false -nega tive rate. Routi ne perio dic testi ng and follo w-up of unexp meg d clini iwona signs and sympt oms are impor tant to minim ize the conse quenc e of false -nega tive Pap tests . Aisha abarca et al. 2012 Updat ed Conse nsus Guide lines for the Manag ement of Abnor mal Cervi iwona Cance r Scree willy Tests and Cance r Precu rsors . J Low Genit Tract Dis 2013; 17 (5): S2-S2 7 Not Available [facility] [address], [place], [address], 11/26/2019 14:45:20 11/28/19 20 US, trans vagin al No observ ation record ed. [email or web address] [address], [place], [address], 11/28/2019 14:10:57 Result Notes None recorded. Procedures Surgical History Date Name Laterality Status Provider Name and Address Organization Details Recorded Time 08/06/19 20 Date of Last Mammogram completed Dee Osorio(TERM) [facility] [employer] 11/18/2019 11:03:48 02/12/19 18 Date of Last Pap Smear completed Dee Osorio(TERM) [facility] [employer] 11/18/2019 11:04:41 02/12/19 16 Date of Last Colonoscopy completed Dee Osorio(TERM) [facility] [employer] G[employer] 11/18/2019 11:04:19 operative procedure on knee completed Not Available [facility] 09/19/2019 07:40:17 Appendectomy completed Dee Osorio(TERM) [place] [facility] [place] [employer] 11/18/2019 11:07:57 procedure on foot completed Dee Osorio(TERM) [facility] [employer] G[employer] 11/18/2019 11:08:05 Imaging Results Imaging Date Name Status LastModified by Organization Details LastModified Time 11/28/2019 [email or web address] [address], [place], [address], 11/28/2019 14:10:57 Procedure Notes None recorded. Medical Equipment None Reported. Allergies Allergen ID Allergen Name Allergen Category Reaction Reaction Severity Criticality Documentation Date Start Date Code Code System Note Provider Name and Address Organization Details Recorded Time 889787 Lexapro medicatio n Not available Not available Not available 09/19/2019 92899 1 RxNorm *Onse t: Sep 30 2010 12:00 AM *Note : Lexap ro, Itchi ng Not Available [facility] 0 07:39:47 063709 Flagyl medicatio n Not available Not available Not available 09/19/201947029 6 RxNorm *Onse t: Sep 30 2010 12:00 AM *Note : Flagy l, Nause a/Vom iting Not Available [facility] 0 07:39:47 Medications Name Sig Start Date Stop Date Status Note LastModified by Organization Details LastModified Time metformin 500 mg tablet 2019 active Not Available Not Available Not Avai lable quetiapine 300 mg tablet 11/17 completed Not Available Not Available Not Available trazodone 50 mg tablet 11/17 completed Not Available Not Available Not Available warfarin 10 mg tablet active Not Available Not Available Not Available sumatriptan 50 mg tablet active Not Available Not Available No t Available quetiapine 100 mg tablet 11/17 completed Not Available Not Available Not Available omeprazole 20 mg capsule,delayed release 2019 active Not Available Not Available Not Avai lable mirtazapine 15 mg tablet 11/17 completed Not Available Not Available Not Available trihexyphenidyl 2 mg tablet 11/17 completed Not Available Not Available Not Available bupropion HCl XL 300 mg 24 hr tablet, extended release 11/17 completed Not Available Not Available Not Available bupropion HCl XL 150 mg 24 hr tablet, extended release active Not Available Not Available Not Available topiramate 50 mg tablet active Not Available Not Available Not Available mirtazapine 7.5 mg tablet 11/17 completed Not Available Not Available Not Available quetiapine 50 mg tablet 11/17 completed Not Available Not Available Not Available quetiapine 400 mg tablet 11/17 completed Not Available Not Available Not Available paliperidone ER 6 mg tablet,extended release 24 hr 11/17 completed Not Available Not Available Not Available paliperidone ER 3 mg tablet,extended release 24 hr 11/17 completed Not Available Not Available Not Available Invega Sustenna 156 mg/mL intramuscular syringe 11/17 completed Not Available Not Available Not Available Invega Sustenna 234 mg/1.5 mL intramuscular syringe 11/17 completed Not Available Not Available Not Available Saphris 10 mg sublingual tablet 11/17 completed Not Available Not Available Not Available Saphris 5 mg sublingual tablet active Not Available Not Available Not Available Vraylar 1.5 mg capsule 11/17 completed Not Available Not Available Not Available Vraylar 4.5 mg capsule 11/17 completed Not Available Not Available Not Available Vraylar 3 mg capsule 11/17 completed Not Available Not Available Not Available Vitals Date Recorded Body weight Body mass index (BMI) Body height Heart rate Systolic blood pressure Diastolic blood pressure Provider Name and Address Organization Details Last Updated DateTime 0 43045.7 4 g 33.2 kg/m2 161.93 cm 76 /min 148 mm[Hg] 98 mm[Hg] Dee Osorio(T ERM) [facility] 0 11:09:13 Social History Question Answer Notes LastModified by Organizat ion Details LastModified Time Tobacco Smoking Status Former Smoker Dee Osorio(TERM) null, [facility] 11/18/2019 11:06:31 What Is Your Level Of Caffeine Consumption? Moderate [email or web address] Information not available 11/18/2019 How Much Tobacco Do You Chew? None [email or web address] Information not available 11/18/2019 What Type Of Diet Are You Following? REGULAR [email or web address] Information not available 11/18/2019 Which Illicit Or Recreational Drugs Have You Used? None [email or web address] Information not available 11/18/2019 History Of Domestic Violence No Information no t available 09/19/2019 Marital Status Single Informatio n not available 09/19/2019 What Was The Date Of Your Most Recent Tobacco Screening? 11/18/2019 [email or web address] Information not available 11/18/2019 Performs Monthly Self-breast Exam? Yes Information no t available 09/19/2019 Are You Sexually Active? Yes [email or web address] Information not available 09/19/2019 Are You Passively Exposed To Smoke? Yes [email or web address] Information no t available 11/18/2019 How Much Tobacco Do You Smoke? No [email or web address] Information not available 11/18/2019 How Many Years Have You Smoked Tobacco? 0 [email or web address] Information not available 11/18/2019 Sex: Unknown Functional Status Question Answer Note LastModified by Organizat ion Details LastModified Time What is your level of alcohol consumption? Occasional [email or web address] Information not available 11/18/2019 Do you or have you ever used smokeless tobacco? Never used smokeless tobacco [email or web address] Information not available 11/18/2019 Are you currently employed? 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 Never used electronic cigarettes [email or web address] Information not available 11/18/2019 What is your exercise level? Occasional [email or web address] Information not available 11/18/2019 Mental Status None recorded. Family History Relationship Description Onset Age of this Age Resolved Age Notes LastModified by Organization Details LastModified Time Maternal Aunt Primary malignant neoplasm of female breast Breast cancer Not available 09/19/2019 11:05:56 Father Asthma Asthma /Aller gies Not available 09/19/2019 11:05:56 Brother Alcohol dependence Chemic al or Alcoho l Depend ency: cousin Not available 09/19/2019 11:05:56 Maternal Grandmother Disorder of body system Diabet es: type? Not available 09/19/2019 11:05:56 Unspecified Relation Primary malignant neoplasm of female breast cousin , matern al [email or web address] Not available 11/18/2019 11:06:20 Medical History Condition Response Neurology- Dementia Psych- Depression GI- Liver Disease/Hepatitis Hematology- Bleeding Disorder Rheumatology- Arthritis Cardiology- High Cholesterol Gynecological History Statement/Question Response History of Abnormal PAP N Date of Last Mammogram 08/06/2019 Date of LMP Age at Menopause 48 Sexual Orientation Heterosexual Date of last bone density Sexually Active Y Age at Menarche: 12 Date of Last Colonoscopy 02/12/2015 History of Sexually Transmitted Infectio n N Current Control Method Menopause Date of Last Pap Smear 02/12/2017 Obstetrics History GPAL:G 4 P 4 0 0 3 Type Value Multiple Births 0 Full Term 4 Induced 0 Spontaneous 0 Premature 0 Living 3 Ectopics 0 Total 4 Past Encounters Encounter ID Performer Location Encounter Start Date Encounter Closed Date Diagnosis/Indication Diagnosis SNOMED-CT Code Diagnosis ICD10 Code Diagnosis Note [id number] HARRIS TARIQ DO [id number] ROPARTNER S_HAZELWO OD [address] [facility] [place] [address] 11/18/2019 10:42:51 11/18/2019 13:07:58 Acute pelvic pain 012685376 R10.2 Gynecologi c examination 26199777 Z01.100 [id number] BAY ROLDAN MD [id number] ROPARTNER S_HAZELWO OD [address] [facility] [place] [address] 11/26/2019 17:17:44 11/26/2019 17:35:59 Pain in pelvis 70025335 R10.2 Health Concerns Section Related Observation LastModified by Organization Detai ls LastModified Time None Recorded Concern Status LastModified by Organization Details LastModified Time None Recorded Advance Directives Directive None Recorded Payers Insurance Date Sequence Insurance Name Policy Number Policy Pineda Covered Member ID Pineda Member ID Guarantor Name 02/19/2020 1 [employer] - DOS PRIOR TO 2021 (MEDICAID REPLACEMENT - HMO) ADI Sue [id number] Rachele Sue 11/18/2019 1 *SELF PAY* An zach Sue Notes Date Note Type Note Provider Name and Address Organization Details Recorded Time 11/18/2019 text/html 54yo postmeno patient here for complaint of RLQ pain. Started about a month ago and has worsened. Noting small cramping. Had some vb after IC- light in color, scant amount, stopped by afternoon. Not painful. Had vaginal rejuvination and since then IC has been comfortable. Some breast tenderness noted also. HARRIS WARNER-RA RAMIREZ, [address] [facility],[address], [place], [address], [facility] 11/19/2019 13:47:28 OBGyn Episode No OBEpisode recorded.
--- OUTSIDE RECORDS SUMMARY | 2024-06-29 17:48 | XMS_ITS | Referral Summary ---
Author Organization [employer] [facility] Address [address] [place] [address] Care Team Providers Care Manager Merchandising Name Role Phone Provider, No Primary Primary Care Provider Unava ilable Allergies No known active allergies Social History Tobacco Use Types Packs/Day Years Used Date Smoking Tobacco: Never Assessed Comments Unknown Sex and Gender Information Value Date Recorded Sex Assigned at Not on file Legal Sex Female 2:21 AM COMMERCIAL ADMINISTRATOR Gender Identity Not on file Sexual Orientation Not on file Last Filed Vital Signs Vital Sign Reading Time Taken Comments Blood Pressure 153/97 02/21/2023 4:15 AM COMMERCIAL ADMINISTRATOR Pulse 83 02/21/2023 4:15 AM COMMERCIAL ADMINISTRATOR Temperature 36.7 C (98.1 F) 02/21/2023 2:27 AM COMMERCIAL ADMINISTRATOR Respiratory Rate 24 02/21/2023 4:15 AM COMMERCIAL ADMINISTRATOR Oxygen Saturation 97% 02/21/2023 4:15 AM COMMERCIAL ADMINISTRATOR Inhaled Oxygen Concentration - - Weight 119.9 kg (264 lb 6.4 oz) 02/21/2023 2:27 AM COMMERCIAL ADMINISTRATOR Height - - Body Mass Index - - Plan of Treatment Not on file Insurance [place] [address] [facility] Care Teams Manager Merchandising Relationship Specialty Start Date End Date Provider, No Primary . [facility] MARADIAG[place] [id number] PCP - General 02/21/23 Additional Source Comments PLEASE NOTE: Replies to this message will not be received.[facility] [place] [facility]
--- OUTSIDE RECORDS SUMMARY | 2024-06-29 17:48 | XMS_ITS | Encounter Summary ---
Author Organization [place] Address [address] [place] [address] Care Team Providers Care Repairer Controller Tester Name Role Phone [facility] Primary Ca re Provider No Ref-Primary, Physician Primary Care Provider Keyla Ayala MD Unavailable [phone] Patrizia Palm MD Unavailable [phone] Patrizia Palm MD Unavailable [phone] Paula Alex MD Unavailable [phone] [facility] - [facility] Unavailable Encounter Details Date Type Department Care Team (Late st Contact Info) Description 01/02/2018 Records - [facility] HE CONVERSION Scan, Non-Provider Social History Tobacco Use Types Packs/Day Years Used Date Smoking Tobacco: Never Smokeless Tobacco: Never Alcohol Use Standard Drinks/Week Comments Yes 0 (1 standard drink = 0.6 oz pur e alcohol) weekends Comments No Sex and Gender Information Value Date Recorded Sex Assigned at Not on file 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 Gender Identity Not on file Sexual Orientation Not on file documented as of this encounter Plan of Treatment Not on file documented as of this encounter Visit Diagnoses Not on filedocumented in this encounter Care Teams Repairer Controller Tester Relationship Specialty Start Date End Date [facility] [address] [place] [address] PCP - General 09/21/17 12/26/18 No Ref-Primary, Physician PCP - General 12/27/18 Keyla Ayala MD PLASTIC SURGERY [address] [place] [address] Surgeon Plastic Surgery 12/27/18 Patrizia Palm MD [address] [place] [address] Plastic Surgery 12/27/18 Patrizia Palm MD [address] [place] [address] 166025 Assigned Surgical Provider 12/05/19 Paula Alex MD [address] [place] [address] 828685 Assigned PCP 07/28/20 03/07/23 [facility] - Gypsy [address] [place], [place] [address] Assigned PCP 03/08/23 02/03/24 documented as of this encounter
--- OUTSIDE RECORDS SUMMARY | 2024-06-29 17:48 | XMS_ITS | Encounter Summary ---
Author Organization [place] Address [address] [place] [address] Care Team Providers Care Palliative Care Specialist Name Role Phone No Ref-Primary, Physician Primary Care Provider Keyla Ayala MD Unavailable [phone] Patrizia Palm MD Unavailable [phone] Paula Alex MD Unavailable [phone] [facility] Unavailable Encounter Details Date Type Department Care Team (Late st Contact Info) Description 09/21/2020 Documentation Only INTERFACED REPORT Unknown, Provider Social History Tobacco Use Types Packs/Day Years Used Date Smoking Tobacco: Former Cigarettes Q uit: 01/30/1990 Smokeless Tobacco: Former Quit: 02/12/1991 Alcohol Use Standard Drinks/Week Comments Yes 5 (1 standard drink = 0.6 oz pur e alcohol) weekends PHQ-2 Answer Date Recorded PHQ-2 Score 3 12/30/2020 Adolescent Education Answer Date Record ed Getting School Help Needed Not on file 11/03 Comments No Sex and Gender Information Value Date Recorded Sex Assigned at Not on file Legal Sex Female 4:12 AM OVAL OR CIRCULAR GLASS CUTTER Gender Identity Not on file Sexual Orientation Not on file COVID-19 Exposure Response Date Recorded In the last month, have you been in contact with someone who was confirmed or suspected to have Coronavirus / COVID-19? No / Unsure 04/22/2021 3:22 PM OVAL OR CIRCULAR GLASS CUTTER documented as of this encounter Plan of Treatment Not on file documented as of this encounter Visit Diagnoses Not on filedocumented in this encounter Additional Health Concerns Assessment Noted Time PHQ-9 Depression Total Score: 4 07/08/19 21 10:50 PM CDT documented as of this encounter Care Teams Palliative Care Specialist Relationship Specialty Start Date End Date No Ref-Primary, Physician PCP - General 12/27/18 Keyla Ayala MD SP PLASTIC SURGERY [address] [place] [address] [place] [id number] Surgeon Plastic Surgery 12/27/18 Patrizia Palm MD [address] 7574[address] Plastic Surgery 12/27/18 Paula Alex MD [address] 819[address] Assigned PCP 07/28/20 03/07/23 [facility] - [address] [place], [place] [id number] Assigned PCP 03/08/23 02/03/24 documented as of this encounter
--- OUTSIDE RECORDS SUMMARY | 2024-06-29 17:48 | XMS_ITS | Clinical Summary ---
Author Organization [facility] Address [address] [place] [address] Care Team Providers Care Wool Sacker Name Role Phone Provider, No Primary Primary Care Provider Unava ilable Allergies No known active allergies Social History Tobacco Use Types Packs/Day Years Used Date Smoking Tobacco: Never Assessed Comments Unknown Sex and Gender Information Value Date Recorded Sex Assigned at Not on file Legal Sex Female 2:21 AM QUALITY INTERN Gender Identity Not on file Sexual Orientation Not on file Last Filed Vital Signs Vital Sign Reading Time Taken Comments Blood Pressure 153/97 02/21/2023 4:15 AM QUALITY INTERN Pulse 83 02/21/2023 4:15 AM QUALITY INTERN Temperature 36.7 C (98.1 F) 02/21/2023 2:27 AM QUALITY INTERN Respiratory Rate 24 02/21/2023 4:15 AM QUALITY INTERN Oxygen Saturation 97% 02/21/2023 4:15 AM QUALITY INTERN Inhaled Oxygen Concentration - - Weight 119.9 kg (264 lb 6.4 oz) 02/21/2023 2:27 AM QUALITY INTERN Height - - Body Mass Index - - Plan of Treatment Health Maintenance Due Date Last Done Comments HPV Testing 1965 Hepatitis C Testing 1965 Depression Screening 1977 HIV Screen 1980 Hepatitis B Vaccines (1 of 3 - 19+ 3-dose series) 1984 Cervical Cancer Screening 1986 CT Colonography 2010 Colonoscopy 2010 Colorectal Cancer Screening 2010 Fecal Immunochemical DNA Test (FIT-DNA) 2010 Fecal Immunochemical Test (FIT) 2010 Pneumococcal Vaccine (50+ Years) (1 of 1 - PCV) 11/01/2015 Varicella Zoster Sequential (1 of 2) 11/01/2015 COVID-19 Vaccine (3 - 2023- season) 2023 10/22/2020, 09/20/2020 Mammogram Standard 10/15/2023 10/14/2022, 0 08/06/2019, 01/27/2015, Additional history exists Influenza Vaccine (Season Ended) 2024 12/30/2020, 01/02/2019, 11/16/2017, Additional history exists Lipids Standard 10/13/2027 10/12/2022, 12/13, 08/02/2018 DTaP/Tdap/Td Vaccines (5 - Td or Tdap) 11/17/2027 11/16/2017, 02/23/2017, 09/26/2006, Additional history exists Respiratory Syncytial Virus (RSV) Vaccine (1 - 1-dose 75+ series) 2040 HIB Vaccines Aged Out No longer eligi ble based on patient's age to complete this topic HPV Vaccines Aged Out No longer eligi ble based on patient's age to complete this topic Hepatitis A Vaccines Aged Out No long er eligible based on patient's age to complete this topic Meningococcal B Vaccines Aged Out No longer eligible based on patient's age to complete this topic Meningococcal Vaccines Aged Out No lo nger eligible based on patient's age to complete this topic Insurance [facility] Care Teams Wool Sacker Relationship Specialty Start Date End Date Provider, No Primary . GRACE MARADIAGA [id number] PCP - General 02/21/23 Additional Source Comments PLEASE NOTE: Replies to this message will not be received.[facility]
--- OUTSIDE RECORDS SUMMARY | 2024-06-29 17:48 | XMS_ITS | Encounter Summary ---
Author Organization [place] Address [facility] [place] [address] Care Team Providers Care Binding Cutter Synthetic Cloth Name Role Phone No Ref-Primary, Physician Primary Care Provider Keyla Ayala MD Unavailable [phone] Patrizia Palm MD Unavailable [phone] Paula Alex MD Unavailable [phone] Clinic - [facility] Unavailable Reason for Visit * Reason Comments Appointment INR Reminder-- Outre ach 2 Encounter Details Date Type Department Care Team (Late st Contact Info) Description 08/20/2020 Ambulatory - [facility] [address] [place] [id number] Adelia Jalloh RN Social History Tobacco Use Types Packs/Day Years [...] on file Legal Sex Female 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 Reminder letter sent Adelia Jalloh RN documented in this encounter Miscellaneous Notes * Letter - Historical Provider - 09/02/2020 5:15 PM CDT Letter by Adelia Jalloh RN at Author: Adelia Jalloh RN Service: -- Author Type: -- Filed: Encounter Date: 08/20/2020 Status: (Other) Rachele Sue [address] [facility] [address] August 20, 2020 Dear Ms. Sue, You are currently under the care of [facility]agulation [facility] for your warfarin (Coumadin??) therapy. We are contacting you because our records show you were due for an INRon 07/22/20. There are potentially serious risks when taking warfarin without careful monitoring and we want to make sure you are safely managed. Routine INR monitoring is required for warfarin refills. Please call [phone] as soon as possible to schedule an appointment. If there has been a changein your care or other concerns, please let us know so we can help and or update our records. Sincerely, [facility] Sincerely, documented in this encounter Plan of Treatment Not on file documented as of this encounter Visit Diagnoses Not on filedocumented in this encounter Additional Health Concerns Assessment Noted Time PHQ-9 Depression Total Score: 4 07/08/19 21 10:50 PM CDT documented as of this encounter Care Teams Binding Cutter Synthetic Cloth Relationship Specialty Start Date End Date No Ref-Primary, Physician PCP - General 12/27/18 Keyla Ayala MD SP PLASTIC SURGERY [address] [place] [address] Surgeon Plastic Surgery 12/27/18 Patrizia Palm MD [address] [place] [id number] Plastic Surgery 12/27/18 Paula Alex MD [address] [place] [id number] Assigned PCP 07/28/20 03/07/[address] [place], [place] [id number] Assigned PCP 03/08/23 02/03/24 documented as of this encounter
--- OUTSIDE RECORDS SUMMARY | 2024-06-29 17:48 | XMS_ITS | Encounter Summary ---
Author Organization [facility] Address [address] [place] [address] Care Team Providers Care Baggage Screener Name Role Phone No Ref-Primary, Physician Primary Care Provider Keyla Ayaal MD Unavailable [phone] Patrizia Palm MD Unavailable [phone] Patrizia Palm MD Unavailable [phone] Paula Alex MD Unavailable [phone] Clinic - [facility] Unavailable Encounter Details Date Type Department Care Team (Late st Contact Info) Description 06/28/2020 Records - [facility] HE CONVERSION Scan, Non-Provider Social History [...] on file Legal 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 Gender Identity Not on file Sexual Orientation Not on file documented as of this encounter Plan of Treatment Not on file documented as of this encounter Visit Diagnoses Not on filedocumented in this encounter Additional Health Concerns Assessment Noted Time PHQ-9 Depression Total Score: 4 07/08/19 21 10:50 PM CDT documented as of this encounter Care Teams Baggage Screener Relationship Specialty Start Date End Date No Ref-Primary, Physician PCP - General 12/27/18 Keyla Ayala MD SP PLASTIC SURGERY [address] [place], [place] [phone] Surgeon Plastic Surgery 12/27/18 Patrizia Palm MD [address] [facility] [address] [phone] Plastic Surgery 12/27/18 Patrizia Palm MD [address] [place] [address] 894655 Assigned Surgical Provider 12/05/19 Paula Alex MD [address] [place] [address] [id number] Assigned PCP 07/28/20 03/07/23 [facility] [place], [place] [id number] Assigned PCP 03/08/23 02/03/24 documented as of this encounter
--- OUTSIDE RECORDS SUMMARY | 2024-06-29 17:48 | XMS_ITS | Encounter Summary ---
Author Organization [place] Address [address] [place] [address] Care Team Providers Care Quick Sketch Artist Name Role Phone No Ref-Primary, Physician Primary Care Provider Keyla Ayala MD Unavailable [phone] Patrizia Palm MD Unavailable [phone] Patrizia Palm MD Unavailable [phone] Paula Alex MD Unavailable [phone] Clinic - [facility] Unavailable Encounter Details Date Type Department Care Team (Late st Contact Info) Description 02/10/2019 Records - [facility] HE CONVERSION Scan, Non-Provider Social History Tobacco Use Types Packs/Day Years Used Date Smoking Tobacco: Never Smokeless Tobacco: Never Alcohol Use Standard Drinks/Week Comments Yes 0 (1 standard drink = 0.6 oz pur e alcohol) weekends Comments No Sex and Gender Information Value Date Recorded Sex Assigned at Not on file 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 Gender Identity Not on file Sexual Orientation Not on file documented as of this encounter Plan of Treatment Not on file documented as of this encounter Visit Diagnoses Not on filedocumented in this encounter Additional Health Concerns Assessment Noted Time PHQ-9 Depression Total Score: 5 07/08/19 21 8:39 PM CDT documented as of this encounter Care Teams Quick Sketch Artist Relationship Specialty Start Date End Date No Ref-Primary, Physician PCP - General 12/27/18 Keyla Ayala MD SP PLASTIC SURGERY [address] [place], [place] [phone] Surgeon Plastic Surgery 12/27/18 Patrizia Palm MD [address] [place] [facility] [address] [place] [address] Plastic Surgery 12/27/18 Patrizia Palm MD [address] [facility] [address] [phone] Assigned Surgical Provider 12/05/19 Paula Alex MD [address] [place] [address] [address] Assigned PCP 07/28/20 03/07/23 [facility] [address] [place] [address] [address] [place], [place] [phone] Assigned PCP 03/08/23 02/03/24 documented as of this encounter
--- OUTSIDE RECORDS SUMMARY | 2024-06-29 17:49 | XMS_ITS | Encounter Summary ---
Author Organization [place] Address [facility] [address] Care Team Providers Care Rolloff Driver Name Role Phone No Ref-Primary, Physician Primary Care Provider Keyla Ayala MD Unavailable [phone] Patrizia Palm MD Unavailable [phone] Paula Alex MD Unavailable [phone] [facility] Unavailable Encounter Details Date Type Department Care Team (Late st Contact Info) Description 04/26/2022 MyC Medical Advice [facility] [address] [place] [address] Hannah Godinez Social History Tobacco Use Types Packs/Day Years Used Date Smoking Tobacco: Former Cigarettes Q uit: 01/30/1990 Smokeless Tobacco: Former Quit: 02/12/1991 Alcohol Use Standard Drinks/Week Comments Yes 5 (1 standard drink = 0.6 oz pur e alcohol) weekends PHQ-2 Answer Date Recorded PHQ-2 Score 3 12/30/2020 Comments No Sex and Gender Information Value Date Recorded Sex Assigned at Not on file Legal Sex Female 4:12 AM LATHE HAND Gender Identity Not on file Sexual Orientation Not on file documented as of this encounter Plan of Treatment Not on file documented as of this encounter Visit Diagnoses Not on filedocumented in this encounter Additional Health Concerns Assessment Noted Time PHQ-9 Depression Total Score: 7 01/01/20 21 7:02 AM LATHE HAND documented as of this encounter Care Teams Rolloff Driver Relationship Specialty Start Date End Date No Ref-Primary, Physician PCP - General 12/27/18 Keyla Ayala MD SP PLASTIC SURGERY [address] [place] [address] Surgeon Plastic Surgery 12/27/18 Patrizia Palm MD [address] [place] [address] [id number] Plastic Surgery 12/27/18 Palua Alex MD [address] [place] [address] [id number] Assigned PCP 07/28/20 03/07/[address] [place], [place] [phone] Assigned PCP 03/08/23 02/03/24 documented as of this encounter
--- OUTSIDE RECORDS SUMMARY | 2024-06-29 17:49 | XMS_ITS | Encounter Summary ---
Author Organization [place] Address [facility] [place] [address] Care Team Providers Care Interlocking And Signal Mechanic Name Role Phone No Ref-Primary, Physician Primary Care Provider Keyla Ayala MD Unavailable [phone] Patrizia Palm MD Unavailable Paula Alex MD Unavailable [phone] [facility] Unavailable Reason for Visit * Reason Comments Medication Refill Encounter Details Date Type Department Care Team (Late st Contact Info) Description 09/28/[address] 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 Pt needs appt. Please call and help her schedule appt for med check and to establish care with new PCP * Telephone Encounter - Halima Narayan - 09/28/2022 4:18 PM CDT Routing refill request to provider for review/approval because: Patient needs to be seen because it has been more than 1 year since last office visit. No established PCP Last Written Prescription Date: 08/24/22 Last Fill Quantity: 30, # refills: 0 Last office visit provider: 12/30/20 Requested Prescriptions Pending Prescriptions Disp Refills XARELTO ANTICOAGULANT 10 MG TABS tablet [Pharmacy Med Name: Xarelto 10MG TABS] 30 tablet 0 Sig: TAKE 1 TABLET BY MOUTH DAILY WITH DINNER Direct Oral Anticoagulant Agents Failed - 09/28/2022 4:17 PM Failed - Normal Platelets on file in past 12 months Recent Labs Lab Test 12/30/20 1517 PLT 380 Failed - Creatinine Clearance greater than 50 ml/min on file in past 3 mos No lab results found. Failed - Serum creatinine less than or equal to 1.4 on file in past 3 mos Recent Labs Lab Test 12/30/20 1517 CR 0.77 Ok to refill medication if creatinine is low Failed - Recent (6 mo) or future (30 days) visit within the authorizing provider's specialty Passed - Medication is active on med list Passed - Patient is 18 years of age or older Passed - No active on record Passed - No positive test within past 12 months omeprazole (PRILOSEC) [address] capsule [Pharmacy Med Name: Omeprazole 20MG CPDR] 30 capsule 0 Sig: TAKE 1 CAPSULE BY MOUTH DAILY BEFORE BREAKFAST PPI Protocol Failed - 09/28/2022 4:17 PM Failed - Recent (12 mo) or future (30 days) visit within the authorizing provider's specialty Patient has had an office visit with the authorizing provider or a provider within the authorizing providers department within the previous 12 mos or has a future within next 30 days. See Patient Info tab in inbasket, or Choose Columns in Meds & Orders section of the refill encounter. Passed - Not on Clopidogrel (unless Pantoprazole ordered) Passed - No diagnosis of osteoporosis on record Passed - Medication is active on med list Passed - Patient is age 18 or older Passed - No active pregnacy on record Passed - No positive test in past 12 months Halima Narayan 09/28/22 4:18 PM documented in this encounter Plan of Treatment Not on file documented as of this encounter Visit Diagnoses Diagnosis On deep vein thrombosis (DVT) prophylaxis Factor V Leiden mutation Primary hypercoagulable state Gastroesophageal reflux disease without esophagitis Esophageal reflux documented in this encounter Additional Health Concerns Assessment Noted Time PHQ-9 Depression Total Score: 7 01/01/20 7:02 AM GLASS FRAME FITTER documented as of this encounter Care Teams Interlocking And Signal Mechanic Relationship Specialty Start Date End Date No Ref-Primary, Physician PCP - General 12/27/18 Keyla Ayala MD PLASTIC SURGERY [address] [place] [address] [address] [place] [address] Surgeon Plastic Surgery 12/27/18 Patrizia Palm MD [address] [place] [address]295 Plastic Surgery 12/27/18 Paula Alex MD [address] [place] [address] [id number] Assigned PCP 07/28/20 03/07/23 [facility] - [address] [place], [place] [phone] Assigned PCP 03/08/23 02/03/24 documented as of this encounter
--- OUTSIDE RECORDS SUMMARY | 2024-06-29 17:49 | XMS_ITS | Encounter Summary ---
Author Organization [place] Address [address] [place] [address] Care Team Providers Care Steamboat Pilot Name Role Phone No Ref-Primary, Physician Primary Care Provider Keyla Ayala MD Unavailable [phone] Patrizia Palm MD Unavailable [phone] Patrizia Palm MD Unavailable [phone] Paula Alex MD Unavailable [phone] Clinic - [facility] Unavailable Encounter Details Date Type Department Care Team (Late st Contact Info) Description 06/10/2020 Records - [facility] HE CONVERSION Scan, Non-Provider Social History [...] on file Legal Sex Female 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 Gender Identity Not on file Sexual Orientation Not on file documented as of this encounter Plan of Treatment Not on file documented as of this encounter Visit Diagnoses Not on filedocumented in this encounter Additional Health Concerns Assessment Noted Time PHQ-9 Depression Total Score: 4 07/08/19 21 10:50 PM CDT documented as of this encounter Care Teams Steamboat Pilot Relationship Specialty Start Date End Date No Ref-Primary, Physician PCP - General 12/27/18 Keyla Ayala MD SP PLASTIC SURGERY [address] [place] [address] Surgeon Plastic Surgery 12/27/18 Patrizia Palm MD [address] [facility] [address] [place] [address] Plastic Surgery 12/27/18 Patrizia Palm MD [address] [place] [address] [id number] Assigned Surgical Provider 12/05/19 Paula Alex MD [address] [place] [address] [address] Assigned PCP 07/28/20 03/07/23 [facility] [address] [place], [place] [phone] Assigned PCP 03/08/23 02/03/24 documented as of this encounter
--- OUTSIDE RECORDS SUMMARY | 2024-06-29 17:49 | XMS_ITS | Encounter Summary ---
Author Organization [place] Address [address] [facility] [place] [address] Care Team Providers Care Grain Sampler Name Role Phone Clinic - [facility] Primary Ca re Provider No Ref-Primary, Physician Primary Care Provider Keyla Ayala MD Unavailable Patrizia Palm MD Unavailable [phone] Patrizia Palm MD Unavailable [phone] Paula Alex MD Unavailable [phone] Clinic - [facility] Unavailable Reason for Visit * Reason Onset Date Comments MH/CD Inpatient 09/21/2017 Encounter Details Date Type Department Care Team (Late st Contact Info) Description 09/21/2017 Telephone [facility] Emergency Department [address] [place] [address] Generic, Behavioral Intake, MH/CD Inpatient Social History Tobacco Use Types Packs/Day Years [...] on file Legal Sex Female 4:12 AM CHEMIST ENZYMES Gender Identity Not on file Sexual Orientation Not on file COVID-19 Exposure Response Date Recorded In the last month, have you been in contact with someone who was confirmed or suspected to have Coronavirus / COVID-19? No / Unsure 04/22/2021 3:22 PM CHEMIST ENZYMES documented as of this encounter Miscellaneous Notes * Telephone Encounter - Keyla Marshall RN - 09/21/2017 3:52 PM CDT S: Mireya calling from [facility] with clinical on this 51 year old female presenting with psychosis. B: Pt BIB sister and brother in law. Over the past 9 months, pt paranoid that 2 people are stalkingand threatening to kill her. Sister says this type of behavior has been going on for about 2 years but not to this extent. In the past 2 months, it's been really bad. Pt reports these people are stealing her phone and keys, breaking into her car. Stalking her, sitting in her lawn. Speaking voicesto her through her television and blue tooth. Pt has been staying in a hotel to hide from these people that she thinks are stalking her. 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 Pt also believes her 18 year old son with Down Syndrome is making gun symbols with his hands and threatening to kill her. Pt recently got on her son's bike and rode it 1 mile to a stranger's house and was asking them to call her sister. When brother in law showed up, the strangerwho owned the house was holding a gun as he was fearful of pt and her behaviors. Pt put on medical leave at work, for work was deeming unfit for duty. Pt reports only alcohol use on weekends and denies drug use. Sister says she has history of cocaine and marijuana use. Sister suspects that she's using meth. Pt has hx of depression but no other diagnoses to support these symptoms. U-tox ordered but not yet collected. Labs ordered as well but not yet collected. A: Voluntary. R: Pt accepted [facility] [address] Cisneros. Unit notified of pending admission at 1630. ED self storage manager paged with disposition at 1635. * Telephone Encounter - Valdemar Callejas - 09/21/2017 12:49 PM CDT S - [facility] Crisis evaluating Pt. Being brought to ED by sister and brother in law B - Pt. Worsening paranoid , son 18 yr old w/ down syndrome , Pt. Believes he has a chip inserted in him, people stalking her and breaking into her home. Pt. Unable to take care of herself or her sonand has been leaving her son alone at times. Pt. Having worsening stress and doesn't know what to do and doesn't feel people believe her. Pt. Has been losing her keys and cell phone and has been staying in a hotel to hide from the people she believes are breaking into her home. No evidence of her home being broke into. Pt. As well has been trying to locate a gun to protect herself with. Pt. Possibly using meth , no reported hx of IP MH Tx , Pt. Has some insight and was guarded when talking about her current situation. A - Pt. To be assessed in ED for MH concerns documented in this encounter Plan of Treatment Not on file documented as of this encounter Visit Diagnoses Not on filedocumented in this encounter Care Teams Grain Sampler Relationship Specialty Start Date End Date Clinic - [address] [address] PCP - General 09/21/17 12/26/18 No Ref-Primary, Physician PCP - General 12/27/18 Keyla Ayala MD PLASTIC SURGERY [address] [place] [address] Surgeon Plastic Surgery 12/27/18 Patrizia Palm MD [address] [phone] Plastic Surgery 12/27/18 Patrizia Palm MD [address] [phone] Assigned Surgical Provider 12/05/19 Paula Alex MD [address] [phone] Assigned PCP 07/28/20 03/07/[address] [place], [place] [phone] Assigned PCP 03/08/23 02/03/24 documented as of this encounter
--- OUTSIDE RECORDS SUMMARY | 2024-06-29 17:49 | XMS_ITS | Encounter Summary ---
Author Organization [place] Address [facility] access hospital0 [facility] 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 DEPARTMENT SUPERVISOR Gender Identity Not on file Sexual Orientation Not on file documented as of this encounter Plan of Treatment Not on file documented as of this encounter Visit Diagnoses Not on filedocumented in this encounter Additional Health Concerns Assessment Noted Time PHQ-9 Depression Total Score: 7 01/01/20 21 7:02 AM PAINT DEPARTMENT SUPERVISOR documented as of this encounter Care Teams Leave Specialist Relationship Specialty Start Date End Date No Ref-Primary, Physician PCP - General 12/27/18 Keyla Ayala MD SP PLASTIC SURGERY [address] [place] [address] [place] [address] [id number] Surgeon Plastic Surgery 12/27/18 Patrizia Palm MD [address] [id number] Plastic Surgery 12/27/18 Paula Alex MD [address] [id number] Assigned PCP 07/28/20 03/07/23 [facility] - [address] [place], [place] [id number] Assigned PCP 03/08/23 02/03/24 documented as of this encounter
--- OUTSIDE RECORDS SUMMARY | 2024-06-29 17:49 | XMS_ITS | Encounter Summary ---
Author Organization [place] Address [facility] [place] [address] Care Team Providers Care Calculus Teacher Name Role Phone [facility] Primary Ca re Provider No Ref-Primary, Physician Primary Care Provider Keyla Ayala MD Unavailable [phone] Patrizia Palm MD Unavailable [phone] Patrizia Palm MD Unavailable [phone] Paula Alex MD Unavailable [phone] Clinic - [facility] Unavailable Encounter Details Date Type Department Care Team (Late st Contact Info) Description 10/09/2017 Records - [facility] HE CONVERSION Scan, Non-Provider Social History Tobacco Use Types Packs/Day Years Used Date Smoking Tobacco: Never Smokeless Tobacco: Never Alcohol Use Standard Drinks/Week Comments Yes 0 (1 standard drink = 0.6 oz pur e alcohol) weekends Comments No Sex and Gender Information Value Date Recorded Sex Assigned at Not on file Legal 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 Gender Identity Not on file Sexual Orientation Not on file documented as of this encounter Plan of Treatment Not on file documented as of this encounter Visit Diagnoses Not on filedocumented in this encounter Care Teams Calculus Teacher Relationship Specialty Start Date End Date Clinic - [facility] [address] [place], [place] [phone] PCP - General 09/21/17 12/26/18 No Ref-Primary, Physician PCP - General 12/27/18 Keyla Ayala MD PLASTIC SURGERY [address] [place], [place] [address] Surgeon Plastic Surgery 12/27/18 Patrizia Palm MD [address] [id number] Plastic Surgery 12/27/18 Patrizia Palm MD [address] [id number] Assigned Surgical Provider 12/05/19 Paula Alex MD [address] [id number] Assigned PCP 07/28/20 03/07/23 Clinic - [place], [facility] [address] [place], [place] [id number] Assigned PCP 03/08/23 02/03/24 documented as of this encounter
--- OUTSIDE RECORDS SUMMARY | 2024-06-29 17:49 | XMS_ITS | Encounter Summary ---
Author Organization [place] Address [facility] [place] [address] Care Team Providers Care Veterinary Parasitologist Name Role Phone No Ref-Primary, Physician Primary Care Provider Keyla Ayala MD Unavailable [phone] Patrizia Palm MD Unavailable [phone] Patrizia Palm MD Unavailable [phone] Paula Alex MD Unavailable [phone] Clinic - [facility] Unavailable Encounter Details Date Type Department Care Team (Late st Contact Info) Description 12/24/2019 Records - [facility] HE CONVERSION Scan, Non-Provider Social History [...] on file Legal Sex Female 4:12 AM NOC ENGINEER Gender Identity Not on file Sexual Orientation Not on file documented as of this encounter Plan of Treatment Not on file documented as of this encounter Visit Diagnoses Not on filedocumented in this encounter Additional Health Concerns Assessment Noted Time PHQ-9 Depression Total Score: 4 07/08/19 10:50 PM CDT documented as of this encounter Care Teams Veterinary Parasitologist Relationship Specialty Start Date End Date No Ref-Primary, Physician PCP - General 12/27/18 Keyla Ayala MD SP PLASTIC SURGERY [address] [place] [address] Surgeon Plastic Surgery 12/27/18 Patrizia Palm MD [address] [address] Plastic Surgery 12/27/18 Patrizia Palm MD [address] [id number] Assigned Surgical Provider 12/05/19 Paula Alex MD [address] [phone] Assigned PCP 07/28/20 03/07/23 [facility] Gypsy [address] [place], [place] [id number] Assigned PCP 03/08/23 02/03/24 documented as of this encounter
--- OUTSIDE RECORDS SUMMARY | 2024-06-29 17:49 | XMS_ITS | Encounter Summary ---
Author Organization [place] Address [facility] [place] [address] Care Team Providers Care Pega Developer Name Role Phone [facility] Primary Ca re Provider No Ref-Primary, Physician Primary Care Provider Keyla Ayala MD Unavailable [phone] Patrizia Palm MD Unavailable [phone] Patrizia Palm MD Unavailable [phone] Paula Alex MD Unavailable [phone] Clinic - [facility] Unavailable Encounter Details Date Type Department Care Team (Late st Contact Info) Description 08/26/2018 Records - [facility] HE CONVERSION Scan, Non-Provider Social History Tobacco Use Types Packs/Day Years Used Date Smoking Tobacco: Never Smokeless Tobacco: Never Alcohol Use Standard Drinks/Week Comments Yes 0 (1 standard drink = 0.6 oz pur e alcohol) weekends Comments No Sex and Gender Information Value Date Recorded Sex Assigned at Not on file Legal Sex Female 4: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 Gender Identity Not on file Sexual Orientation Not on file documented as of this encounter Plan of Treatment Not on file documented as of this encounter Visit Diagnoses Not on filedocumented in this encounter Care Teams Pega Developer Relationship Specialty Start Date End Date Clinic - [facility] [address] [place], [place] [phone] PCP - General 09/21/17 12/26/18 No Ref-Primary, Physician PCP - General 12/27/18 Keyla Ayala MD PLASTIC SURGERY [address] [place], [place] [address] Surgeon Plastic Surgery 12/27/18 Patrizia Palm MD [address] [phone] Plastic Surgery 12/27/18 Patrizia Palm MD [address] 884285 Assigned Surgical Provider 12/05/19 Paula Alex MD [address] [id number] Assigned PCP 07/28/20 03/07/23 Clinic - [place], [facility] [address] [place], [place] [id number] Assigned PCP 03/08/23 02/03/24 documented as of this encounter
--- OUTSIDE RECORDS SUMMARY | 2024-06-29 17:49 | XMS_ITS | Encounter Summary ---
Author Organization [place] Address [facility] [place] [address] Care Team Providers Care System Analyst Name Role Phone [facility] Primary Ca re Provider No Ref-Primary, Physician Primary Care Provider Keyla Ayala MD Unavailable [phone] Patrizia Palm MD Unavailable [phone] Patrizia Palm MD Unavailable [phone] Paula Alex MD Unavailable [phone] Clinic - [facility] Unavailable Encounter Details Date Type Department Care Team (Late st Contact Info) Description 11/06/2017 Records - [facility] HE CONVERSION Scan, Non-Provider Social History Tobacco Use Types Packs/Day Years Used Date Smoking Tobacco: Never Smokeless Tobacco: Never Alcohol Use Standard Drinks/Week Comments Yes 0 (1 standard drink = 0.6 oz pur e alcohol) weekends Comments No Sex and Gender Information Value Date Recorded Sex Assigned at Not on file Legal Sex Female 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 [address] [place], [place] [phone] PCP - General 09/21/17 12/26/18 No Ref-Primary, Physician PCP - General 12/27/18 Keyla Ayala MD PLASTIC SURGERY [address] [place], [place] [address] Surgeon Plastic Surgery 12/27/18 Patrizia Palm MD [address] 699105 Plastic Surgery 12/27/18 Patrizia Palm MD [address] [phone] Assigned Surgical Provider 12/05/19 Paula Alex MD [address] 738255 Assigned PCP 07/28/20 03/07/23 Clinic - [place], [facility] [address] [place], [place] [phone] Assigned PCP 03/08/23 02/03/24 documented as of this encounter
--- OUTSIDE RECORDS SUMMARY | 2024-06-29 17:49 | XMS_ITS | Encounter Summary ---
Author Organization [place] Address [address] [place] [address] Care Team Providers Care Maintenance Service Technician Name Role Phone [facility] Primary Ca re Provider No Ref-Primary, Physician Primary Care Provider Keyla Ayala MD Unavailable [phone] Patrizia Palm MD Unavailable [phone] Patrizia Palm MD Unavailable [phone] Paula Alex MD Unavailable [phone] [facility] Unavailable Encounter Details Date Type Department Care Team (Late st Contact Info) Description 06/10/2018 Records - [facility] HE CONVERSION Scan, Non-Provider Social History Tobacco Use Types Packs/Day Years Used Date Smoking Tobacco: Never Smokeless Tobacco: Never Alcohol Use Standard Drinks/Week Comments Yes 0 (1 standard drink = 0.6 oz pur e alcohol) weekends Comments No Sex and Gender Information Value Date Recorded Sex Assigned at Not on file Legal Sex Female 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 Gender Identity Not on file Sexual Orientation Not on file documented as of this encounter Plan of Treatment Not on file documented as of this encounter Visit Diagnoses Not on filedocumented in this encounter Care Teams Maintenance Service Technician Relationship Specialty Start Date End Date [facility] [address] [place] [address] PCP - General 09/21/17 12/26/18 No Ref-Primary, Physician PCP - General 12/27/18 Keyla Ayala MD PLASTIC SURGERY [address] [place] [address] Surgeon Plastic Surgery 12/27/18 Patrizia Palm MD [address] [place] [address] Plastic Surgery 12/27/18 Patrizia Palm MD [address] [place] [address] [phone] Assigned Surgical Provider 12/05/19 Paula Alex MD [address] [place] [address] [id number] Assigned PCP 07/28/20 03/07/23 [facility] - Gypsy [address] [place], [place] [phone] Assigned PCP 03/08/23 02/03/24 documented as of this encounter
--- OUTSIDE RECORDS SUMMARY | 2024-06-29 17:49 | XMS_ITS | Clinical Summary ---
Author Organization [place] Address [facility] [place] [address] Care Team Providers Care Chalk Tester Name Role Phone No Ref-Primary, Physician Primary Care Provider Keyla Ayala MD Unavailable [phone] Patrizia Palm MD Unavailable [phone] Allergies Active Allergy Reactions Criticality Noted Date Comments Aripiprazole Other (See Comments) 07/10/2014 Memory Change Buspirone Other (See Comments) 07/09/2013 Patient get aggitated Escitalopram Itching 07/09/2013 Metronidazole Nausea and Vomiting 07/09/2013 Medications Lactobacillus (PROBIOTIC ACIDOPHILUS) CAPS Take 1 capsule by mouth daily Active fish oil-omega-3 fatty acids 1000 MG capsule Take 1,000 mg by mouth 2 times daily Active tretinoin microspheres (RETIN-A MICRO) 0.1 % topical gel Apply 0.1 Packages topically as needed Does not use in the summer 12/18/19 14 Active Specialty Vitamins Products (HAIR NOURISHING SUPPLEMENT PO) Take 1 tablet by mouth daily Active acetaminophen (TYLENOL) 325 MG tabletIndications :Other chronic pain Take 3 tablets (975 mg) by mouth every 6 hours as needed for mild pain 90 tablet 1 10/17/19 18 Active topiramate (TOPAMAX) 100 MG tabletIndications :Psychosis, unspecified psychosis type (H) Take 1 tablet (100 mg) by mouth daily 30 tablet 1 10/18/19 18 Active buPROPion (WELLBUTRIN XL) 150 MG 24 hr tabletIndications :Methamphetamine use disorder, severe (H),Schizoaffecti ve disorder, bipolar type (H) Take 1 tablet (150 mg) by mouth every morning 30 tablet 1 10/17/19 18 Active QUEtiapine (SEROQUEL) 100 MG tablet Take 100 mg by mouth daily 1 06/01/19 19 Active doxepin (SILENOR) 3 MG tablet 12/30/19 21 Active LATUDA 40 MG TABS tablet 09/29/19 21 Active artificial saliva (BIOTENE DRY MOUTHWASH) LIQD liquid 10 mLs by Transmucosal route 06/19/19 21 Active metFORMIN (GLUCOPHAGE) 500 MG tabletIndications :Prediabetes Take 1 tablet (500 mg) by mouth 2 times daily (with meals) 12/31/19 21 Active furosemide (LASIX) 20 MG tabletIndications :Bilateral lower extremity edema TAKE 1 TABLET BY MOUTH DAILY NEEDED FOR SWELLING IN LEG 90 tablet 3 01/31/20 21 Active omeprazole (PRILOSEC) [address] capsuleIndication s:Gastroesophagea l reflux disease without esophagitis TAKE 1 CAPSULE BY MOUTH DAILY BEFORE BREAKFAST 30 capsule 08/25/19 23 Active XARELTO ANTICOAGULANT 10 MG TABS tabletIndications :On deep vein thrombosis (DVT) prophylaxis,Facto r V Leiden mutation TAKE 1 TABLET BY MOUTH DAILY WITH DINNER 30 tablet 08/25/19 23 Active famotidine (PEPCID) 20 MG tabletIndications :Gastroesophageal reflux disease without esophagitis Take 1 tablet (20 mg) by mouth every 12 hours 180 tablet 11/22/19 23 Active SUMAtriptan (IMITREX) 50 MG tabletIndications :Migraine without status migrainosus, not intractable, unspecified migraine type Take 1 tablet (50 mg) by mouth at onset of headache for migraine May repeat after 2 hours if needed. Max dose of 200 mg per 24 hours 12 tablet 02/21/19 24 Active Active Problems Problem Noted Date Diagnosed Date Morbid obesity 12/30/2020 Varicose veins of lower extremity 09/20/2020 Cocaine substance abuse 09/20/2020 Dermatophytosis of nail 09/20/2020 Generalized anxiety disorder 09/20/2020 manager intermediate current use of anticoagulant therapy 0 09/20/2020 Mild recurrent major depression 09/20/2020 Migraine aura without headache 09/20/2020 Pityriasis versicolor 09/20/2020 Primary insomnia 09/20/2020 Reflux esophagitis 09/20/2020 Stress at home 09/20/2020 Factor V Leiden mutation 08/22/2020 History of DVT (deep vein thrombosis) 08/22/2020 Hyperlipidemia 09/22/2019 Overview (09/20/2020): Created by Conversion Created by Conversion Vitamin B12 deficiency (non anemic) 01/30/2019 Chronic pain 10/16/2017 Rash and nonspecific skin eruption 10/16/2017 Factor 5 Leiden mutation, heterozygous 8 Other acne 10/16/2017 Esophageal reflux 10/16/2017 Methamphetamine use disorder, severe 09/28/2017 Schizoaffective disorder, bipolar type 8 Delusions 09/21/2017 BMI 32.0-32.9,adult 05/29/2014 Overview (09/20/2020): Created by Conversion Immunizations Immunization Administration Dates Next Due COVID-19 Monovalent 18+ (Moderna) 09/20/2020 Flu 65+ (Fluad) 11/02/2014, 3,11/22/2011,2010,11/11/2009 Flu, Unspecified 11/13/2016, 2,10/27/2010,2009,11/05/2008,12/09/2007 Influenza (IIV3) PF 11/02/2014, 5,11/17/2013,2012,11/22/2011,10/27/2010,11/11/2009 Influenza (prior to 2023) 11/16/2015,11/05/2008, 12/09/2007 Influenza Vaccine 18-64 (Flublok) 12/30/2020,,11/16/2017 Influenza Vaccine >6 months,quad, PF 11/13/2016 Influenza Vaccine, 6+MO IM (QUADRIVALENT W/PRESERVATIVES) 11/13/2016,10/13/2014,11/17/2013 Influenza vaccine ages 6-35 months 10/13/2014, TD,PF 7+ (Tenivac) 11/16/2017,06/01/1997 TDAP (Adacel,Boostrix) 02/23/2017,09/26/2006 TDAP Vaccine (Adacel) 09/26/2006 TDAP Vaccine (Boostrix) 02/23/2017,09/26/2006 Td (Adult), Adsorbed 06/01/1997 Family History Medical History Relation Comments Depression Brother 1 No Known Problems Brother 2 Breast Cancer Cousin Cancer Cousin Asthma Father Factor V Leiden deficiency Father Hyperlipidemia Father Breast Cancer Maternal Aunt Cancer Maternal Aunt Cancer Maternal Uncle Colon Cancer Maternal Uncle Heart Disease Mother broken heart syn drome Factor V Leiden deficiency Sister Hyperlipidemia Sister Cancer Son 1 leukemia Relation Status Comments Brother 1 (Age 41) Brother 2 Alive Cousin Father Alive Factor V Leiden Maternal Aunt Alive Maternal Uncle Mother Alive Sister Alive Factor V Leiden Son 1 Alive Down Syndrome Son 2 Alive Son 3 Alive Social History Tobacco Use Types Packs/Day [...] on file Legal Sex Female 4:12 AM CONSTRUCTION FLAGGER Gender Identity Not on file Sexual Orientation Not on file Last Filed Vital Signs Vital Sign Reading Time Taken Comments Blood Pressure 130/84 12/30/2020 2:42 PM CONSTRUCTION FLAGGER Pulse 76 12/30/2020 2:42 PM CONSTRUCTION FLAGGER Temperature 36.9 C (98.4 F) 06/18/2020 2:16 PM CDT Respiratory Rate 16 09/04/2019 11:5 6 AM CDT Oxygen Saturation 99% 12/30/2020 2:42 PM CONSTRUCTION FLAGGER Inhaled Oxygen Concentration - - Weight 99.2 kg (218 lb 11.2 oz) 12/30/2020 2:42 PM CONSTRUCTION FLAGGER Height 160 cm (5' 3) 09/04/2019 11:56 AM CDT Body Mass Index 38.74 09/04/2019 11:56 AM CDT Plan of Treatment Health Maintenance Due Date Last Done Comments ANNUAL REVIEW OF HM ORDERS 1965 CT COLONOGRAPHY 1965 FIT 1965 FLEX SIG 1965 sDNA (Cologuard) 1965 HEPATITIS B IMMUNIZATION (1 of 3 - 19+ 3-dose series) 1984 LUNG CANCER SCREENING 11/01/2015 06/17/2009 Pneumococcal Vaccine: 50+ Years (1 of 1 - PCV) 11/01/2015 ZOSTER IMMUNIZATION (1 of 2) 11/01/2015 PAP 05/01/2021 05/01/2018, 04/13, 05/01/2018, Additional history exists MAMMO SCREENING 08/05/2021 08/06/2019, 08/13, 01/05/2017, Additional history exists LIPID 12/30/2021 12/30/2020, 03/0 06/2020, 06/17/2019, Additional history exists ADVANCE CARE PLANNING 09/24/2022 09/24/2017 COVID-19 Vaccine ( season) 2023 10/22/2020, 09/20/2020 DIABETES SCREENING 12/31/2023 12/30/2020, 1 03/01/2020, 06/18/2020, Additional history exists INFLUENZA VACCINE (Season Ended) 2024 12/30/2020, 01/02/2019, 11/16/2017, Additional history exists COLONOSCOPY 10/04/2026 10/04/2016 COLORECTAL CANCER SCREENING 10/04/2026 DTAP/TDAP/TD IMMUNIZATION (7 - Td or Tdap) 11/17/2027 11/16/2017, 02/23/2017, 02/23/2017, Additional history exists HEPATITIS C SCREENING Completed 09/04/2019, 018 HIV SCREENING Completed 09/04/2019, 01/12, 01/29/2019, Additional history exists HPV IMMUNIZATION Aged Out No longer e ligible based on patient's age to complete this topic MENINGITIS IMMUNIZATION Aged Out No l onger eligible based on patient's age to complete this topic Procedures Procedure Name Priority Date/Time Associated Diagnosis Comments COMPREHENSIVE METABOLIC PANEL Routine 12/30/2020 3:17 PM CONSTRUCTION FLAGGER High risk medication use LIPID REFLEX TO DIRECT LDL PANEL Routine 12/30/2020 3:17 PM CONSTRUCTION FLAGGER Morbid obesity (H) HIV ANTIGEN ANTIBODY COMBO Routine 09/04/2019 12:14 PM CDT HEPATITIS C ANTIBODY Routine 09/04/2019 12:14 PM CDT MAMMOGRAM - HIM SCAN 08/06/2019 GYNECOLOGIC CYTOLOGY Routine 05/01/2018 12:11 PM CDT COLONOSCOPY - HIM SCAN 10/04/2016 CTA CHEST WITH CONTRAST Routine 06/17/2009 12:00 AM CDT from Last 3 Months or Most Recently Relevant to Health Maintenance Results * (ABNORMAL) Lipid panel reflex to direct LDL Non-fasting (12/30/2020 3:17 PM CONSTRUCTION FLAGGER) Cholesterol 211(H) <=199 mg/dL 12/30/2020 10:32 PM CONSTRUCTION FLAGGER [facility] Triglycerides 122 <=149 mg/dL 12/30/2020 10:32 PM CONSTRUCTION FLAGGER [facility] Direct Measure HDL 68 >=50 mg/dL 12/30/2020 10:32 PM CONSTRUCTION FLAGGER [facility] Comment: HDL Cholesterol Reference Range: 0-2 years: No reference ranges established for patients under 2 years old at [facility] for lipid analytes. 2-8 years: Greater than 45 mg/dL 18 years and older: Female: Greater than or equal to 50 mg/dL Male: Greater than or equal to 40 mg/dL LDL Cholesterol Calculated 119 <=129 mg/dL 12/30/2020 10:32 PM CONSTRUCTION FLAGGER [facility] Patient Fasting > 8hrs? Unknown 12/30/2020 10:32 PM CONSTRUCTION FLAGGER [facility] Blood STRUCTURE OF LEFT UPPER LIMB / Unknown Venipuncture / Unknown 12/30/2020 3:17 PM CONSTRUCTION FLAGGER 12/30/2020 3:23 PM CONSTRUCTION FLAGGER us Paula Alex MD LAB - BLOOD ORDERABLES Final R esult [facility] [address] [address], [facility] [phone] * (ABNORMAL) Comprehensive metabolic panel (BMP + Alb, Alk Phos, ALT, AST, Total. Bili, TP) (12/30/2020 3:17 PM CONSTRUCTION FLAGGER) Sodium 142 136 - 145 mmol/L 12/30/2020 10:32 PM [facility] Potassium 5.0 3.5 - 5.0 mmol/L 12/30/2020 10:32 PM [facility] Chloride 107 98 - 107 mmol/L 12/30/2020 10:32 PM [facility] Carbon Dioxide (CO2) 24 22 - 31 mmol/L 12/30/2020 10:32 PM [facility] Anion Gap 11 5 - 18 mmol/L 12/30/2020 10:32 PM [facility] Urea Nitrogen 17 8 - 22 mg/dL 12/30/2020 10:32 PM [facility] Creatinine 0.77 0.60 - 1.10 mg/dL 12/30/2020 10:32 PM [facility] Calcium 9.6 8.5 - 10.5 mg/dL 12/30/2020 10:32 PM [facility] Glucose 96 70 - 125 mg/dL 12/30/2020 10:32 PM [facility] Alkaline Phosphatase 109 45 - 120 U/L 12/30/2020 10:32 PM [facility] AST 28 0 - 40 U/L 12/30/2020 10:32 PM [facility] ALT 54(H) 0 - 45 U/L 12/30/2020 10:32 PM [facility] Protein Total 6.5 6.0 - 8.0 g/dL 12/30/2020 10:32 PM [facility] Albumin 3.9 3.5 - 5.0 g/dL 12/30/2020 10:32 PM [facility] Bilirubin Total 0.7 0.0 - 1.0 mg/dL 12/30/2020 10:32 PM CONSTRUCTION FLAGGER [facility] GFR Estimate 87 >60 mL/min/1.7 3m2 12/30/2020 10:32 PM [facility] Comment:As of August 22, 2020, eGFR is calculated by the CKD-EPI creatinine equation, without race adjustment. eGFR can be influenced by muscle mass, exercise, and diet. The reported eGFR is an estimation only and is only applicable if the renal function is stable. Blood STRUCTURE OF LEFT UPPER LIMB / Unknown Venipuncture / Unknown 12/30/2020 3:17 PM CONSTRUCTION FLAGGER 12/30/2020 3:23 PM CONSTRUCTION FLAGGER us Paula Alex MD LAB - BLOOD ORDERABLES Final R esult Performing Organization Address City/[facility]/ZIP Co de Phone Number [facility] [address] [place] [address], [facility] [phone] * HIV Antigen Antibody Combo (09/04/2019 12:14 PM CDT) HIV Antigen Antibody Combo Negative Negative 09/04/2019 9:50 PM CDT [facility] Blood specimen (specimen) Venipuncture / Unknown 09/04/2019 12:14 PM CDT 09/04/2019 7:08 PM CDT Narrative [facility] - 09/04/2019 9:50 PM CDT Method is Vargas HIV Ag/Ab for the detection of HIV p24 antigen, HIV-1 antibodies and HIV-2 antibodies. us Hilary Caballero MD LAB - BLOOD ORDERABLES Final Re sult Performing Organization Address City/[facility]/ZIP Co de Phone Number [facility] [address] [address], [facility] [address] [place] [id number] * Hepatitis C antibody (09/04/2019 12:14 PM CDT) Hepatitis C Antibody Negative Negative 09/05/2019 10:47 AM CDT [facility] Blood specimen (specimen) Venipuncture / Unknown 09/04/2019 12:14 PM CDT 09/04/2019 7:08 PM CDT Hilary Caballero MD LAB - BLOOD ORDERABLES Final Re sult [facility] [address] [place] [address], [facility] [address] [place] [address] * MAMMOGRAM - HIM SCAN (08/06/2019) Anatomical Region Laterality Modality Other Historical Provider IMG MAMMOGRAPHY ORDERABLES F inal Result * Gynecologic Cytology (PAP Smear) (05/01/2018 12:11 PM CDT) Case Report Gynecologic Cytology Report Case: [id number] Authorizing Provider: Paula Alex MD Collected: 05/01/2018 1211 Ordering Location: [facility]/OB Received: 05/01/2018 1211 First Screen: Marielle Zuluaga CT (ASCP) Specimen: SUREPATH PAP, SCREENING, Endocervical/cer vical 9 12:47 PM CDT Interpretation Negative for squamous intraepithelial lesion or malignancy Negative for squamous intraepithelial lesion or malignancy. 9 12:47 PM CDT Result Flag Normal Normal 9 12:47 PM CDT Specimen Adequacy Satisfactory for evaluation, endocervical/tra nsformation zone component present 9 12:47 PM CDT Reflex Testing Yes regardless of result 9 12:47 PM CDT High Risk? No 9 12:47 PM CDT LMP/Menopause Date several years 9 12:47 PM CDT Abnormal Bleeding No 9 12:47 PM CDT Patient Status na 9 12:47 PM CDT Control/Hormone s None 9 12:47 PM CDT Previous Normal several years 9 12:47 PM CDT Previous Abnormal? none 9 12:47 PM CDT Cervical Appearance normal 9 12:47 PM CDT Specimen from genital system (specimen) CERVIX UTERI STRUCTURE / Unknown 05/01/2018 12:11 PM CDT 05/02/2018 9:37 AM CDT Paula [facility] Final Result * COLONOSCOPY - HIM SCAN (10/04/2016) us Historical Provider PROCEDURES Final Result * CTA Chest with Contrast (06/17/2009 12:00 AM CDT) Anatomical Region Laterality Modality Chest, SUBRAD IR PROCEDURE, UMP CT CTA, RAD CT Computed Tomography Narrative 06/17/2009 12:00 AM CDT See Historical Hospital Medical Record for documentation Procedure Note Provider, Historical - 07/14/2020 See Historical Hospital Medical Record for documentation Historical Provider IMG CT ORDERABLES Final Resu lt from Last 3 Months or Most Recently Relevant to Health Maintenance Insurance MEDICAID [place] MEDICARE Advance Directives For more information, please contact: [phone] * Full Code (Latest Code Status on File) Date Activated Date Inactivated Comments 09/21/2017 8:07 PM 10/16/2017 5:47 PM Care Teams Chalk Tester Relationship Specialty Start Date End Date No Ref-Primary, Physician PCP - General 12/27/18 Keyla Ayala MD PLASTIC SURGERY [address] [place] [address] [place] [id number] Surgeon Plastic Surgery 12/27/18 Patrizia Palm MD [address] [place] [address] [address] [place] [address] Plastic Surgery 12/27/18
--- OUTSIDE RECORDS SUMMARY | 2024-06-29 17:49 | XMS_ITS | Encounter Summary ---
Author Organization [place] Address [facility] [place] [address] Care Team Providers Care Addressing Machine Operator Name Role Phone No Ref-Primary, Physician Primary Care Provider Keyla Ayala MD Unavailable [phone] Patrizia Palm MD Unavailable [phone] Paula Alex MD Unavailable [facility] Unavailable Reason for Visit * Reason Comments Medication Refill Encounter Details Date Type Department Care Team (Late st Contact Info) Description 04/24/2022 Refill M [facility] [address] [facility] [address] [place] [address] Paula Alex MD [facility] [address] [place] [id number] Medication Refill Social History Tobacco Use [...] on file Legal Sex Female 4:12 AM GRAIN OPERATIONS MANAGER Gender Identity Not on file Sexual Orientation Not on file documented as of this encounter Miscellaneous Notes * Telephone Encounter - Herbert, Hannah Peters - 04/26/2022 12:16 PM CDT Sent patient mychart message as well letting her know of dr clarke message. * Telephone Encounter - HerbertHannah mccray - 04/26/2022 12:13 PM CDT Called and left message to have her call us back. Please relay dr clarke message when she calls back. * Telephone Encounter - Paula Alex MD - 04/25/2022 5:41 PM CDT Refill sent today. Please let patient know she needs to schedule an appointment in order to continue to get refills * Telephone Encounter - Lashae Moses RN - 04/24/2022 5:00 PM CDT Routing refill request to provider for review/approval because: Labs not current: Platelets, creatinine clearance, serum creatinine Patient needs to be seen Last Written Prescription Date: 03/15/2022 Last Fill Quantity: 30, # refills: 0 Last office visit provider: 12/30/2020 Requested Prescriptions Pending Prescriptions Disp Refills ??? XARELTO ANTICOAGULANT 10 MG TABS tablet [Pharmacy Med Name: Xarelto 10MG TABS] 30 tablet 0 Sig: TAKE 1 TABLET BY MOUTH DAILY WITH DINNER Direct Oral Anticoagulant Agents Failed - 04/24/2022 8:42 AM Failed - Normal Platelets on file in [...] No positive test within past 12 months Lashae Moses, RN 04/24/22 5:00 PM documented in this encounter Plan of Treatment Not on file documented as of this encounter Visit Diagnoses Diagnosis DVT prophylaxis Encounter for long-term (current) use of anticoagulants Factor V Leiden mutation Primary hypercoagulable state documented in this encounter Additional Health Concerns Assessment Noted Time PHQ-9 Depression Total Score: 7 01/01/20 21 7:02 AM GRAIN OPERATIONS MANAGER documented as of this encounter Care Teams Addressing Machine Operator Relationship Specialty Start Date End Date No Ref-Primary, Physician PCP - General 12/27/18 Keyla Ayala MD PLASTIC SURGERY [address] [place] [address] [place] [id number] Surgeon Plastic Surgery 12/27/18 Patrizia Palm MD [address] [place] [id number] Plastic Surgery 12/27/18 Paula Alex MD [address] [place] [id number] Assigned PCP 07/28/20 03/07/23 [facility] - [address] [place], [place] [id number] Assigned PCP 03/08/23 02/03/24 documented as of this encounter
--- OUTSIDE RECORDS SUMMARY | 2024-06-29 17:49 | XMS_ITS | Encounter Summary ---
Author Organization [place] Address [address] [place] [address] Care Team Providers Care Endoscope Technician Name Role Phone Clinic - [facility] Primary Ca re Provider No Ref-Primary, Physician Primary Care Provider Keyla Ayala MD Unavailable [phone] Patrizia Palm MD Unavailable [phone] Patrizia Palm MD Unavailable [phone] Ashlie Talbert MD Primary Care Provider [phone] Paula Alex MD Primary Care Provider [phone] Paula Alex MD Unavailable [phone] Clinic - [facility] Unavailable Encounter Details Date Type Department Care Team (Late st Contact Info) Description 11/04/2014 Records - [facility] [address] [place] [id number] Provider, Historical Varicose 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 Social History Tobacco Use Types Packs/Day Years Used Date Smoking Tobacco: Never Assessed Comments Unknown Sex and Gender Information Value Date Recorded Sex Assigned at Not on file 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 Gender Identity Not on file Sexual Orientation Not on file documented as of this encounter Progress Notes * Historical Provider - 11/04/2014 1:10 PM CDT VNUS Radiofrequency Ablation Pre-Procedure: Admit [x]Consent for Radio Frequency Ablation of the []Right Saphenous Vein and/or branches [x]Left Saphenous Vein and/or branches Vitals [x]Vital signs per routine Nursing Orders [x]Vein Mapping of []R extremity [x]L extremity [x]Sterile Prep to extremity [x]Obtain Tumescent Solution 500mL (NS 1000mL, 1% Lidocaine w Epi 56mL, 8.4% Sodium Bicarbonate 5.6mL) Medications [x]Diazepam (Valium) 5mg PO, May Repeat x 1 for anxiety, relaxtion. Post-Procedure: Admission [x]Post Procedure care - call physician for status update []Admit to inpatient - Please document reason for admission in chart Interventions require inpatient services High risk of deterioration due to comorbidities High risk of deterioration due to nature of admitting diagnosis Location: Vitals [x]Vital signs per routine Nursing Orders [x]Thigh High Compression Stocking 20-30mm or 30-40mm to []R extremity [x]L extremity [x]Check insertion site for bleeding or hematoma. If bleeding or hematoma occurs, apply pressure and notify MD Discharge [x]Discharge home if no complications arise. [x]Give post radiofrequency ablation discharge instructions to patient. [x]Follow up venous ultrasound 72-96 hours after procedure. [x]Follow up appointment with MD at 2 weeks. 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 Symptomatic varicose veins. 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 Symptomatic varicose veins. PROCEDURE: Radiofrequency ablation of the Left Greater Saphenous Vein. SURGEON: Theo Sands ANESTHESIA: Local, local 1% lidocaine 10 mL and 0.1% lidocaine 5 mL. REPLACEMENTS: none COMPLICATIONS: none EBL: < 5 ml SPECIMENS: none FINDINGS: A vein that is initially closed. INDICATIONS: We discussed doing a closure procedure. The risks of anesthesia, infection bleeding, clotting, DVTs and not closing we discussed and she wishes to proceed. DESCRIPTION OF PROCEDURE: Consent was obtained. she was taken to the operating room and placed in the supine position. she leg was prepped and draped in a sterile manner. Lidocaine 1% was used as a local anesthetic infused into the area of access. We then used Seldinger Technique and ultrasound guidance to gain access to the vein with a needle and a wire. Over the wire a 7-Dutch introducer was placed. Through this introducer a 7-Dutch VNUS Closure Fast-Cath was passed up to the Saphenofemoral junction and pulled distal 2.5cm. Upon completion of this we then used ultrasound guidance to tumesce the vein using 0.1% lidocaine causing the vein to collapse around itself but also for local anesthetic effect. Upon completion of this we then at this time point placed the patient in the Trendelenburg position and the generator was set at a maximum power of 40 leyva, temperature 120 degrees Celsius and each 7cm segment was treated for 20 seconds. Upon completion the introducer and the catheter were removed. The patient's leg was cleaned up and placed in a stocking. He was transferred to home in the care of a family member. Theo Sands MD [facility] Surgery Dept. Procedure Note Theo Sands - 07/18/2020 PREOPERATIVE DIAGNOSIS: Insufficiency reflux of the Left Greater SaphenousVein. Symptomatic varicose veins. POSTOPERATIVE DIAGNOSIS: Insufficiency reflux of the Left GreaterSaphenous Vein. Symptomatic varicose veins. PROCEDURE: Radiofrequency ablation of the Left Greater Saphenous Vein. SURGEON: Theo Sands ANESTHESIA: Local, local 1% lidocaine 10 mL and 0.1% lidocaine 5 mL. REPLACEMENTS: none COMPLICATIONS: none EBL: < 5 ml SPECIMENS: none FINDINGS: A vein that is initially closed. INDICATIONS: We discussed doing a closure procedure. The risks ofanesthesia, infection bleeding, clotting, DVTs and not closing wediscussed and she wishes to proceed. DESCRIPTION OF PROCEDURE: Consent was obtained. she was taken to theoperating room and placed in the supine position. she leg was prepped anddraped in a sterile manner. Lidocaine 1% was used as a local anestheticinfused into the area of access. We then used Seldinger Technique and ultrasound guidance to gain access tothe vein with a needle and a wire. Over the wire a 7-Dutch introducerwas placed. Through this introducer a 7-Dutch VNUS Closure Fast-Cath waspassed up to the Saphenofemoral junction and pulled distal 2.5cm. Upon completion of this we then usedultrasound guidance to tumesce the vein using 0.1% lidocaine causing thevein to collapse around itself but also for local anesthetic effect.Upon completion of this we then at this time point placed the patient in the Trendelenburg position and thegenerator was set at a maximum power of 40 leyva, temperature 120 degreesCelsius and each 7cm segment was treated for 20 seconds. Upon completionthe introducer and the catheter were removed. The patient's leg was cleaned up and placed in a stocking.He was transferred to home in the care of a family member. Theo Sands MD [facility] Surgery Dept. us Theo Sands MD [facility] ORDERABLES Final Resu lt documented in this encounter Visit Diagnoses Diagnosis Varicose 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 documented in this encounter Care Teams Endoscope Technician Relationship Specialty Start Date End Date Clinic - [address] [address] PCP - General 09/21/17 12/26/18 No Ref-Primary, Physician PCP - General 12/27/18 Ashlie Talbert MD [address] [address] PCP - General 10/05/13 07/10/17 Paula Alex MD [address] [place] [address] PCP - General Family Practice 07/11/17 09/20/17 Keyla Ayala MD SP PLASTIC SURGERY [address] [address] Surgeon Plastic Surgery 12/27/18 Patrizia Palm MD [address] [address] Plastic Surgery 12/27/18 Patrizia Palm MD [address] [facility] [address] [address] Assigned Surgical Provider 12/05/19 Paula Alex MD [address] [address] Assigned PCP 07/28/20 03/07/23 [facility] [address] [place] [address] 100 [place] [address] Assigned PCP 03/08/23 02/03/24 documented as of this encounter
--- OUTSIDE RECORDS SUMMARY | 2024-06-29 17:49 | XMS_ITS | Encounter Summary ---
Author Organization [place] Address [facility] [place] [address] Care Team Providers Care Hotel Maid Name Role Phone No Ref-Primary, Physician Primary Care Provider Keyla Ayala MD Unavailable [phone] Patrizia Palm MD Unavailable Paula Alex MD Unavailable [phone] [facility] Unavailable Reason for Visit * Reason Comments Medication Refill Encounter Details Date Type Department Care Team (Late st Contact Info) Description 09/27/2022 Refill [facility] [address] [place] [address] Paula Alex MD HEALTH rocket staff [facility] [employer] [place] [address] Medication Refill Social History Tobacco [...] on file Legal Sex Female 4:12 AM WHAT JOB TITLES MEAN Gender Identity Not on file Sexual Orientation Not on file documented as of this encounter Miscellaneous Notes * Telephone Encounter - Paula Alex MD - 09/27/2022 4:57 PM CDT Refill requests denied. Has not been seen in over a year. Please help her schedule appt for med check and to establish carewith new PCP * Telephone Encounter - Angelica Quiroz RN - 09/27/2022 2:09 PM CDT Routing refill request to provider for review/approval because: Jelly given x1 and patient did not follow up, please advise Labs not current: Cr, PLT Patient needs to be seen because it has been more than 1 year since last office visit. Omeprazole Last Written Prescription Date: 08/24/22 Last Fill Quantity: 30, # refills: 0 Last office visit provider: 12/30/20 Xarelto Last Written Prescription Date: 08/24/22 Last Fill Quantity: 30, # refills: 0 Last office visit provider: 12/30/20 Requested Prescriptions Pending Prescriptions Disp Refills omeprazole (PRILOSEC) [address] capsule [Pharmacy Med Name: Omeprazole 20MG CPDR] 30 capsule 0 Sig: TAKE 1 CAPSULE BY MOUTH DAILY BEFORE BREAKFAST PPI Protocol Failed - 09/27/2022 2:09 PM Failed - Recent (12 mo) or [...] No positive test in past 12 months XARELTO ANTICOAGULANT 10 MG TABS tablet [Pharmacy Med Name: Xarelto 10MG TABS] 30 tablet 0 Sig: TAKE 1 TABLET BY MOUTH DAILY WITH DINNER Direct Oral Anticoagulant Agents Failed - 09/27/2022 2:09 PM Failed - Normal Platelets on file [...] No positive test within past 12 months Angelica Quiroz RN 09/27/22 2:34 PM documented in this encounter Plan of Treatment Not on file documented as of this encounter Visit Diagnoses Diagnosis Gastroesophageal reflux disease without esophagitis Esophageal reflux On deep vein thrombosis (DVT) prophylaxis Factor V Leiden mutation Primary hypercoagulable state documented in this encounter Additional Health Concerns Assessment Noted Time PHQ-9 Depression Total Score: 7 01/01/20 21 7:02 AM WHAT JOB TITLES MEAN documented as of this encounter Care Teams Hotel Maid Relationship Specialty Start Date End Date No Ref-Primary, Physician PCP - General 12/27/18 Keyla Ayala MD PLASTIC SURGERY [facility] [place] [id number] Surgeon Plastic Surgery 12/27/18 Patrizia Palm MD [address] [place] [address] 677385 Plastic Surgery 12/27/18 Paula Alex MD [address] 4[address] Assigned PCP 07/28/20 03/07/23 [facility] [address] [facility] 100 [place] [address] Assigned PCP 03/08/23 02/03/24 documented as of this encounter
--- OUTSIDE RECORDS SUMMARY | 2024-06-29 17:49 | XMS_ITS | Encounter Summary ---
Author Organization [place] Address [facility] [place] [address] Care Team Providers Care Cartridge Maker Name Role Phone No Ref-Primary, Physician Primary Care Provider Keyla Ayala MD Unavailable [phone] Patrizia Palm MD Unavailable Paula Alex MD Unavailable 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 Please call pt to schedule appt for med check and to est care with new PCP * Telephone Encounter - Rocío Coffman RN - 08/24/2022 8:57 AM CDT Routing refill request to provider for review/approval because: Labs not current: Creat, Plt, Creat Clr Patient needs to be seen because it has been more than 1 year since last office visit. Last Written Prescription Date: 05/10/2022 Last Fill Quantity: 90, # refills: 0 Last office visit provider: 12/30/2020 Last Written Prescription Date: 08/01/2022 Last Fill Quantity: 30, # refills: 0 Last office visit: 12/30/2020 Requested Prescriptions Pending Prescriptions Disp Refills omeprazole (PRILOSEC) [address] capsule [Pharmacy Med Name: Omeprazole 20MG CPDR] 30 capsule Sig: TAKE 1 CAPSULE BY MOUTH DAILY BEFORE BREAKFAST PPI Protocol Failed - 08/23/2022 3:26 PM Failed - Recent (12 mo) or [...] DINNER Direct Oral Anticoagulant Agents Failed - 08/23/2022 3:26 PM Failed - Normal Platelets on file [...] No positive test within past 12 months ROCÍO COFFMAN RN 08/24/22 8:57 AM documented in this encounter Plan of Treatment Not on file documented as of this encounter Visit Diagnoses Diagnosis Gastroesophageal reflux disease without esophagitis Esophageal reflux On deep vein thrombosis (DVT) prophylaxis Factor V Leiden mutation Primary hypercoagulable state documented in this encounter Additional Health Concerns Assessment Noted Time PHQ-9 Depression Total Score: 7 01/01/20 7:02 AM SENIOR DATA INTEGRATION DEVELOPER documented as of this encounter Care Teams Cartridge Maker Relationship Specialty Start Date End Date No Ref-Primary, Physician PCP - General 12/27/18 Keyla Ayala MD PLASTIC SURGERY [facility] [place] [address] Surgeon Plastic Surgery 12/27/18 Patrizia Palm MD [address] [address] Plastic Surgery 12/27/18 Paula Alex MD [address] [address] Assigned PCP 07/28/20 03/07/23 [facility] Patrizia Betancur [facility] [address] [facility] [address] [place] [address] Assigned PCP 03/08/23 02/03/24 documented as of this encounter
--- OUTSIDE RECORDS SUMMARY | 2024-06-29 17:49 | XMS_ITS | Encounter Summary ---
Author Organization [place] Address [facility] [place] [address] Care Team Providers Care Diaper Folder Name Role Phone Clinic - [facility] Primary Ca re Provider No Ref-Primary, Physician Primary Care Provider Keyla Ayala MD Unavailable [phone] Patrizia Palm MD Unavailable [phone] Patrizia Palm MD Unavailable [phone] Paula Alex MD Unavailable [phone] Clinic - [facility] Unavailable Reason for Visit * Reason Onset Date Comments MH/CD Inpatient 06/10/2018 Encounter Details Date Type Department Care Team ([facility] st Contact Info) Description 06/10/2018 Telephone [facility] Behavioral Health Intake [address] [place] [address] Generic, Behavioral Intake, MH/CD Inpatient Social History [...] on file 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 No / Unsure 04/22/2021 3:22 PM STEREOTYPER documented as of this encounter Miscellaneous Notes * Telephone Encounter - Zayda Roberts - 06/10/2018 1:48 AM CDT S: Tunnel Heading Inspector called about 52 yr old female in [place] ED for AH B: Tunnel Heading Inspector reports pt brought her son in to the ED for agitation. During assessment of the son MD and chief writer found pt could benefit from IP psych treatment. Pt reports hearing voices that recentlygo to brother home to pick him up or bomb is in her car and she need to go to police station. Pt reports she realizes these are the voices tell her to do this once she gets to the destination.Pt reports drinking cup of vodka today and using cocaine 2-3 weeks ago. Pt was under commitment and is currently off of it. Pt reports not taking medication due to worrying about money. Tunnel Heading Inspector report pt has hx of paranoia, hallucinations, depression, anxiety, polysubstance abuse, insomnia, and pt reportscognitive disabilities she has recently been diagnosed with. A: vol; Medically cleared; BMP and CBC are in appropriate range; utox not ordered R: Pt placed on wait list; awaiting appropriate bed ED reports pt is considering discharge from ED ED will call back Pt discharged from ED at 4:16am Pt removed from waitlist documented in this encounter Plan of Treatment Not on file documented as of this encounter Visit Diagnoses Not on filedocumented in this encounter Care Teams Diaper Folder Relationship Specialty Start Date End Date Clinic - [facility] [address] [place], [place] [id number] PCP - General 09/21/17 12/26/18 No Ref-Primary, Physician PCP - General 12/27/18 Keyla Ayala MD SP PLASTIC SURGERY [address] [place], [place] [address] Surgeon Plastic Surgery 12/27/18 Patrizia Palm MD [address] 6[address] Plastic Surgery 12/27/18 aPtrizia Palm MD [address] [address] Assigned Surgical Provider 12/05/19 Paula Alex MD [address] [address] Assigned PCP 07/28/20 03/07/23 Clinic - Gy[facility] [address] [place], [place] [id number] Assigned PCP 03/08/23 02/03/24 documented as of this encounter
--- OUTSIDE RECORDS SUMMARY | 2024-06-29 17:49 | XMS_ITS | Encounter Summary ---
Author Organization [place] Address [address] [place] [address] Care Team Providers Care Automatic Engraver Name Role Phone [facility] Primary Ca re Provider No Ref-Primary, Physician Primary Care Provider Keyla Ayala MD Unavailable [phone] Patrizia Palm MD Unavailable [phone] Patrizia Palm MD Unavailable [phone] Ashlie Talbert MD Primary Care Provider [phone] Paula Alex MD Primary Care Provider [phone] Paula Alex MD Unavailable [phone] [facility] Unavailable Encounter Details Date Type Department Care Team (Late st Contact Info) Description 07/10/2014 Records - [facility] HE CONVERSION Scan, Non-Provider Social History Tobacco Use Types Packs/Day Years Used Date Smoking Tobacco: Never Assessed Comments Unknown Sex and Gender Information Value Date Recorded Sex Assigned at Not on file 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 Gender Identity Not on file Sexual Orientation Not on file documented as of this encounter Plan of Treatment Not on file documented as of this encounter Visit Diagnoses Not on filedocumented in this encounter Care Teams Automatic Engraver Relationship Specialty Start Date End Date [facility] [address] [place] [address] PCP - General 09/21/17 12/26/18 No Ref-Primary, Physician PCP - General 12/27/18 Ashlie Talbert MD [address] [place] [address] PCP - General 10/05/13 07/10/17 Paula Alex MD [address] [address] PCP - General Family Practice 07/11/17 09/20/17 Keyla Ayala MD PLASTIC SURGERY [address] [address] Surgeon Plastic Surgery 12/27/18 Patrizia Palm MD [address] [place] [address] MD Plastic Surgery 12/27/18 Patrizia Palm MD [address] [address] Assigned Surgical Provider 12/05/19 Paula Alex MD [address] [address] Assigned PCP 07/28/20 03/07/23 [facility] [address] [facility] [address] [facility] [address] [place] [address] Assigned PCP 03/08/23 02/03/24 documented as of this encounter
--- NOTE | 2024-06-29 18:42 | ED.NURSE ---
Pt is eager to discharge; states feeling better and understanding of dosing of anticoagulation plan.
--- NOTE | 2024-06-30 02:57 | ED.NURSE ---
chart opened to send imaging information. RQI request received from [facility].
== END 2024-06-29 18:44 | disposition home or self-care (01) ==
PROVIDERS: Emergency Medicine; Emergency Provider Emergency Medicine
DX: I26.99 Other pulmonary embolism without acute cor pulmonale (principal); R07.89 Other chest pain; R11.0 Nausea; R19.7 Diarrhea, unspecified; E11.9 Type 2 diabetes mellitus without complications; I10 Essential (primary) hypertension; Z79.01 Long term (current) use of anticoagulants; Z86.718 Personal history of other venous thrombosis and embolism
CPT/HCPCS: 36415; 71045; 71275; 80048; 80076; 83735; 83880; 84484; 85025; 85379; 85610; 86140; 87631; 93005; 93970; 94761; 99284; 99285; Q9967